=== PATIENT | male | born 1965 | race African-American/Black ===

== ENCOUNTER 2017-09-18 23:47 | Inpatient (IN) | payer OTHER ==
[~2017-09-18] VITALS: Ht 170.2 cm; Wt 67.1 kg
[~2017-09-18 23:47] MED LIST: ASPI-1159 PO; BACL20TA PO; CARV3.1242 PO; IBUP-2028 PO; LISI40TA4 PO; MULT-1146 PO; OMEG1CAP94 PO; VALP250C PO
[2017-09-19] MEDS ORDERED: SODIUM CHLORIDE 0.9% 1000ML BAG (SEPSIS BOLUS) IV ONE (00:15)
[2017-09-19 01:49] LABS: HEMOGLOBIN. 14.8 g/dL (14.0-18.0); MEAN CORPUSCULAR HEMOGLOBIN 32.8 pg (28.0-32.0); MEAN CORPUSCULAR VOLUME 95.3 fL (80.0-94.0); MEAN PLATELET VOLUME 7.9 fl (7.4-10.4); PLATELET 228 x1000/uL (130-400); RED BLOOD CELL COUNT 4.51 mill/uL (4.7-6.1); RED CELL DISTRIBUTION WIDTH 13.5 % (11.6-14.6)
[2017-09-19 01:55] LABS: PROTHROMBIN TIME 10.5 sec (9.4-11.6)
[2017-09-19 01:56] LABS: CHLORIDE 85 mEq/L (98-107)
[2017-09-19 02:00] LABS: ETHANOL BLOOD < 10 mg/dL
[2017-09-19] MEDS ORDERED: POTASSIUM BICARB/CIT ACID 25 MEQ TABLET.EFF PO SCH (02:55)
[2017-09-19 03:48] LABS: ATYPICAL LYMPHOCYTES 2; PLATELET ESTIMATE NORMAL
[2017-09-19 04:30] VITALS: BP 92/59
[2017-09-19] MEDS ORDERED: SODIUM CHLORIDE 0.9% 1,000 ML IV SCH (05:30)
[2017-09-19 06:41] VITALS: BP 92/59
[2017-09-19 08:00] VITALS: BP 97/61
[2017-09-19 10:52] LABS: HEMATOCRIT. 41.4 % (42.0-52.0); HEMOGLOBIN. 14.2 g/dL (14.0-18.0); MEAN CORPUSCULAR HEMOGLOBIN 32.7 pg (28.0-32.0); MEAN CORPUSCULAR VOLUME 95.3 fL (80.0-94.0); PLATELET 211 x1000/uL (130-400); RED BLOOD CELL COUNT 4.35 mill/uL (4.7-6.1); RED CELL DISTRIBUTION WIDTH 13.3 % (11.6-14.6)
[2017-09-19 11:16] LABS: CHLORIDE 85 mEq/L (98-107)
[2017-09-19 11:31] LABS: LDL CHOLESTEROL 53 mg/dL (5-100)
[2017-09-19 11:32] LABS: HDL CHOLESTEROL 47 mg/dL (40-59)
[2017-09-19 12:00] VITALS: BP_SYST 111; BP_SYST 112; BP_SYST 114; BP_DIAS 60; BP_DIAS 70
[2017-09-19] MEDS ORDERED: POTASSIUM CHLORIDE 20MEQ TABLET SR PO SCH (12:30)
[2017-09-19 14:36] LABS: PLATELET ESTIMATE NORMAL
[2017-09-19 15:46] LABS: PHOSPHORUS 3.5 mg/dL (2.5-4.9)
[2017-09-19 15:50] LABS: CLARITY URINE CLEAR (CLEAR); COLOR URINE YELLOW (YELLOW); KETONES URINE TRACE (NEGATIVE); LEUKOCYTE ESTERASE URINE NEGATIVE (NEGATIVE); NITRITE URINE NEGATIVE (NEGATIVE); OCCULT BLOOD URINE NEGATIVE (NEGATIVE); PROTEIN URINE TRACE (NEGATIVE); SPECIFIC GRAVITY URINE 1.017 (1.005-1.030); UROBILINOGEN URINE 0.2 E.U./dL (0.2-1.0)
[2017-09-19] MEDS: BACLOFEN 20MG TABLET PO SCH ×2 (15:58→22:51)
[2017-09-19] MEDS: POTASSIUM CHLORIDE INJ 40 MEQ in SODIUM CHLORIDE 0.9% 1,000 ML IV SCH (15:58)
[2017-09-19] MEDS: CHLORPROMAZINE HCL 25 MG TABLET PO SCH ×2 (15:58→22:51)
[2017-09-19 16:00] VITALS: BP 120/77
[2017-09-19 16:02] LABS: *AMPHETAMINES SCREEN URINE NEGATIVE (NEGATIVE); *BARBITURATES SCREEN URINE NEGATIVE (NEGATIVE)
[2017-09-19 16:03] LABS: *BENZODIAZEPINES SCREEN URINE NEGATIVE (NEGATIVE); *COCAINE SCREEN URINE NEGATIVE (NEGATIVE); CANNABINOID URINE SCREEN NEGATIVE (NEGATIVE); METHADONE URINE SCREEN NEGATIVE (NEGATIVE); OPIATES URINE SCREEN NEGATIVE (NEGATIVE); PHENCYCLIDINE URINE SCREEN NEGATIVE (NEGATIVE)
[2017-09-19 20:00] VITALS: BP_SYST 116; BP_SYST 117; BP_DIAS 73; BP_DIAS 78
[2017-09-19] MEDS ORDERED: KCL 20MEQ/100ML PREMIX 100 ML IV ONE (22:15)
[2017-09-19] MEDS ORDERED: POTASSIUM CHLORIDE INJ 40 MEQ in DEXT 5% WATER 250 ML IV NR (23:30)
[2017-09-20] VITALS: BP_SYST 100; BP_SYST 106; BP_DIAS 60
[2017-09-20] MEDS: POTASSIUM CHLORIDE INJ 40 MEQ in SODIUM CHLORIDE 0.9% 1,000 ML IV SCH (00:36)
[2017-09-20] MEDS ORDERED: KCL 20MEQ/100ML PREMIX 100 ML IV ONE (01:00)
[2017-09-20 04:00] VITALS: BP_SYST 108; BP_SYST 135; BP_DIAS 65; BP_DIAS 73
[2017-09-20] MEDS: CHLORPROMAZINE HCL 25 MG TABLET PO SCH ×3 (06:37→21:14)
[2017-09-20 08:00] VITALS: BP 125/79
[2017-09-20] MEDS: BACLOFEN 20MG TABLET PO SCH ×2 (08:26→16:07)
[2017-09-20 10:35] LABS: CHLORIDE 95 mEq/L (98-107)
[2017-09-20 10:43] LABS: HDL CHOLESTEROL 45 mg/dL (40-59)
[2017-09-20 10:46] LABS: CREATINE KINASE 203 IU/L (39-308)
[2017-09-20 10:49] LABS: CREATINE KINASE MB FRACTION < 0.5 ng/mL (0.5-3.6)
[2017-09-20 10:52] LABS: LDL CHOLESTEROL 56 mg/dL (5-100)
[2017-09-20] MEDS ORDERED: POTASSIUM CHLORIDE 20MEQ TABLET SR PO NR ×3 (11:45→18:00)
[2017-09-20 12:00] VITALS: BP_SYST 112; BP_SYST 137; BP_DIAS 70; BP_DIAS 84
[2017-09-20] MEDS: KCL 20MEQ/100ML PREMIX 100 ML IV NR ×3 (12:30→14:01)
[2017-09-20] MEDS ORDERED: KCL 20MEQ/100ML PREMIX 100 ML IV NR (14:30)
[2017-09-20] MEDS ORDERED: TH25 PO (15:41)
[2017-09-20] MEDS ORDERED: BACL20TA PO (15:41)
[2017-09-20 16:00] VITALS: BP 128/70
[2017-09-20 16:36] LABS: BASOPHILS % 0.3 % (0.0-2.0); EOSINOPHILS % 1.3 % (0.0-5.0); HEMATOCRIT. 42.6 % (42.0-52.0); HEMOGLOBIN. 14.2 g/dL (14.0-18.0); LYMPHOCYTES % 32.2 % (20.0-50.0); MEAN CORPUSCULAR HEMOGLOBIN 32.4 pg (28.0-32.0); MEAN CORPUSCULAR VOLUME 97.2 fL (80.0-94.0); MEAN PLATELET VOLUME 8.4 fl (7.4-10.4); MONOCYTES % 14.8 % (2.0-8.0); NEUTROPHILS % 51.4 % (40.0-76.0); PLATELET 191 x1000/uL (130-400); RED BLOOD CELL COUNT 4.39 mill/uL (4.7-6.1); RED CELL DISTRIBUTION WIDTH 13.6 % (11.6-14.6)
[2017-09-20 16:40] LABS: CHLORIDE 100 mEq/L (98-107)
[2017-09-20 20:00] VITALS: BP_SYST 114; BP_SYST 120; BP_SYST 133; BP_DIAS 65; BP_DIAS 81; BP_DIAS 84
[2017-09-21] VITALS: BP 119/66
[2017-09-21 04:00] VITALS: BP 137/83
[2017-09-21] MEDS: CHLORPROMAZINE HCL 25 MG TABLET PO SCH ×2 (05:06→15:21)
[2017-09-21 07:43] LABS: BASOPHILS % 0.2 % (0.0-2.0); EOSINOPHILS % 1.6 % (0.0-5.0); HEMATOCRIT. 40.6 % (42.0-52.0); HEMOGLOBIN. 13.5 g/dL (14.0-18.0); LYMPHOCYTES % 37.5 % (20.0-50.0); MEAN CORPUSCULAR HEMOGLOBIN 32.1 pg (28.0-32.0); MEAN CORPUSCULAR VOLUME 96.3 fL (80.0-94.0); MEAN PLATELET VOLUME 8.9 fl (7.4-10.4); MONOCYTES % 13.6 % (2.0-8.0); NEUTROPHILS % 47.1 % (40.0-76.0); PLATELET 186 x1000/uL (130-400); RED BLOOD CELL COUNT 4.22 mill/uL (4.7-6.1); RED CELL DISTRIBUTION WIDTH 13.2 % (11.6-14.6)
[2017-09-21 07:59] LABS: CHLORIDE 100 mEq/L (98-107)
[2017-09-21 08:00] VITALS: BP_SYST 126; BP_SYST 138; BP_SYST 147; BP_DIAS 86; BP_DIAS 88; BP_DIAS 91; BP_DIAS 93
[2017-09-21 08:08] LABS: PHOSPHORUS 2.3 mg/dL (2.5-4.9)
[2017-09-21] MEDS ORDERED: POTASSIUM CHLORIDE 20MEQ TABLET SR PO SCH (08:15)
[2017-09-21] MEDS: BACLOFEN 20MG TABLET PO SCH (08:55)
[2017-09-21] MEDS ORDERED: MAGNESIUM 2 G PREMIX 50 ML IV SCH (09:30)
[2017-09-21] MEDS ORDERED: ACETAMINOPHEN 650MG/20.3ML UDC PO PRN (10:00)
[2017-09-21] MEDS ORDERED: POTASSIUM-SODIUM PHOSPHATE POWDER PACKET PO SCH (10:00)
[2017-09-21] MEDS ORDERED: ACETAMINOPHEN 325MG TABLET PO PRN (10:30)
[2017-09-21 11:43] VITALS: BP 126/84
[2017-09-21 12:00] VITALS: BP 126/84
[2017-09-21] MEDS ORDERED: POTASSIUM CHLORIDE 20MEQ/PACKET PO ONE (12:00)
== END 2017-09-21 16:00 | disposition home or self-care (01) | DRG 469 ==
LOC: ER 23:47 → 5WST 09-19 02:21 → EDBEDREQTM 09-19 02:25 → EDBEDREQ 09-19 02:25 → ENRESERV 09-19 03:07
PROVIDERS: ADMIT Family Medicine; ATTEND Family Medicine
DX: N17.0 Acute kidney failure with tubular necrosis (principal); E87.4 Mixed disorder of acid-base balance; I95.9 Hypotension, unspecified; E27.8 Other specified disorders of adrenal gland; E83.42 Hypomagnesemia; E83.39 Other disorders of phosphorus metabolism; E11.9 Type 2 diabetes mellitus without complications; E87.6 Hypokalemia; I10 Essential (primary) hypertension; R06.6 Hiccough; K44.9 Diaphragmatic hernia without obstruction or gangrene; M19.90 Unspecified osteoarthritis, unspecified site; E86.0 Dehydration; F10.10 Alcohol abuse, uncomplicated; Y90.9 Presence of alcohol in blood, level not specified; F41.8 Other specified anxiety disorders; Y90.8 Blood alcohol level of 240 mg/100 ml or more; F17.200 Nicotine dependence, unspecified, uncomplicated; Z79.899 Other long term (current) drug therapy; Z82.49 Family history of ischemic heart disease and other diseases of the circulatory system; Z79.82 Long term (current) use of aspirin
CPT/HCPCS: 36415; 70450; 71045; 74176; 76770; 80048; 80053; 80061; 80305; 81003; 82088; 82550; 82553; 83036; 83605; 83690; 83735; 83880; 84100; 84132; 84244; 84439; 84443; 84484; 85025; 85379; 85610; 87040; 87086; 93005; 93306; 96360; 96361; 97162; 99285; G0482; J3475; J3480; J7030; J7050; J7060; Q0161

== ENCOUNTER 2018-07-04 10:21 | Emergency (ER) | payer OTHER ==
[~2018-07-04] VITALS: Ht 170.2 cm; Wt 80.0 kg
[~2018-07-04 10:21] MED LIST changes: -CARV3.1242 PO; -IBUP-2028 PO; +TH25 PO
[2018-07-04] MEDS ORDERED: AMLO2.5T45 PO (10:27)
[2018-07-04 11:46] LABS: EOSINOPHILS % 0.6 % (0.0-5.0); HEMOGLOBIN. 17.7 g/dL (14.0-18.0); MEAN CORPUSCULAR HEMOGLOBIN 33.8 pg (28.0-32.0); MEAN CORPUSCULAR VOLUME 99.4 fL (80.0-94.0); MEAN PLATELET VOLUME 7.9 fl (7.4-10.4); MONOCYTES % 10.2 % (2.0-8.0); NEUTROPHILS % 59.2 % (40.0-76.0); PLATELET 210 x1000/uL (130-400); RED BLOOD CELL COUNT 5.23 mill/uL (4.7-6.1)
[2018-07-04 11:53] LABS: CHLORIDE 102 mEq/L (98-107)
[2018-07-04 11:54] LABS: CLARITY URINE CLEAR (CLEAR); COLOR URINE YELLOW (YELLOW); KETONES URINE NEGATIVE (NEGATIVE); LEUKOCYTE ESTERASE URINE NEGATIVE (NEGATIVE); NITRITE URINE NEGATIVE (NEGATIVE); OCCULT BLOOD URINE NEGATIVE (NEGATIVE); PROTEIN URINE NEGATIVE (NEGATIVE); SPECIFIC GRAVITY URINE 1.006 (1.005-1.030)
[2018-07-04] MEDS: POTASSIUM CHLORIDE 20MEQ TABLET SR PO ONE (14:27)
[2018-07-04 17:30] VITALS: BP 144/81
== END 2018-07-04 17:55 | disposition short-term general hospital (02) ==
LOC: ER 10:25
DX: E11.65 Type 2 diabetes mellitus with hyperglycemia (principal); E87.6 Hypokalemia; R78.89 Finding of other specified substances, not normally found in blood; F32.9 Major depressive disorder, single episode, unspecified; I10 Essential (primary) hypertension; Z79.82 Long term (current) use of aspirin; Z79.899 Other long term (current) drug therapy
CPT/HCPCS: 36415; 83605; 84132; 84145; 99285

== ENCOUNTER 2018-08-08 20:54 | Inpatient (IN) | payer OTHER ==
[~2018-08-08] VITALS: Ht 167.6 cm; Wt 67.4 kg
[~2018-08-08 20:54] MED LIST changes: +AMLO2.5T45 PO; -ASPI-1159 PO; +ASPI-1393 PO
[2018-08-08] MEDS ORDERED: SODIUM CHLORIDE 0.9% 1,000 ML IV ONE ×2 (21:21→23:45)
[2018-08-08] MEDS ORDERED: NALOXONE HCL 1 MG/ML 2ML VIAL IV ONE ×2 (21:30→22:30)
[2018-08-08 21:52] LABS: CLARITY URINE TURBID (CLEAR); COLOR URINE YELLOW (YELLOW); KETONES URINE TRACE (NEGATIVE); LEUKOCYTE ESTERASE URINE NEGATIVE (NEGATIVE); NITRITE URINE NEGATIVE (NEGATIVE); OCCULT BLOOD URINE 1+ (NEGATIVE); PROTEIN URINE 4+ (NEGATIVE); SPECIFIC GRAVITY URINE 1.026 (1.005-1.030)
[2018-08-08 21:57] LABS: *AMPHETAMINES SCREEN URINE NEGATIVE (NEGATIVE); *BARBITURATES SCREEN URINE NEGATIVE (NEGATIVE); *BENZODIAZEPINES SCREEN URINE PRESUMTIVE POSITIVE (NEGATIVE); *COCAINE SCREEN URINE NEGATIVE (NEGATIVE); METHADONE URINE SCREEN NEGATIVE (NEGATIVE); OPIATES URINE SCREEN NEGATIVE (NEGATIVE)
[2018-08-08 21:58] LABS: CANNABINOID URINE SCREEN NEGATIVE (NEGATIVE); PHENCYCLIDINE URINE SCREEN NEGATIVE (NEGATIVE)
[2018-08-08 22:17] LABS: BASOPHILS % 0.4 % (0.0-2.0); EOSINOPHILS % 0.2 % (0.0-5.0); HEMATOCRIT. 49.4 % (42.0-52.0); HEMOGLOBIN. 16.2 g/dL (14.0-18.0); LYMPHOCYTES % 24.7 % (20.0-50.0); MEAN CORPUSCULAR HEMOGLOBIN 33.6 pg (28.0-32.0); MEAN CORPUSCULAR VOLUME 102.6 fL (80.0-94.0); MEAN PLATELET VOLUME 8.4 fl (7.4-10.4); MONOCYTES % 9.6 % (2.0-8.0); NEUTROPHILS % 65.1 % (40.0-76.0); PLATELET 180 x1000/uL (130-400); RED BLOOD CELL COUNT 4.82 mill/uL (4.7-6.1); RED CELL DISTRIBUTION WIDTH 14.5 % (11.6-14.6)
[2018-08-08 22:24] LABS: CHLORIDE 109 mEq/L (98-107)
[2018-08-08 22:26] LABS: INR 1.1; PROTHROMBIN TIME 11.7 sec (9.6-11.0)
[2018-08-08 22:28] LABS: ETHANOL BLOOD 187 mg/dL
[2018-08-09] VITALS (77 sets, daily range): BP systolic 75–138; BP diastolic 38–80
[2018-08-09] MEDS ORDERED: ONDANSETRON HCL 4MG/2ML INJ IV ONE (00:15)
[2018-08-09] MEDS ORDERED: PIPERACILLIN/TAZ 3.375G PREMIX 50 ML IV ONE (00:45)
[2018-08-09] MEDS ORDERED: VANCOMYCIN 1 G PREMIX 200 ML IV ONE (00:45)
[2018-08-09 01:12] LABS: BG BASE EXCESS -23.8 mmol/L (-2.0-2.0); BG CARBOXYHEMOGLOBIN 2.2 % (0.5-1.5); BG DEOXYHEMOGLOBIN 10.4 % (0.0-5.0); BG FRACTION INSPIRED OXYGEN 28; BG HCO3 ACT 8.1 mmol/L (22.0-26.0); BG METHEMOGLOBIN 0.5 % (0.0-1.5); BG OXYGEN SATURATION 89.3 % (92.0-98.5); BG OXYHEMOGLOBIN 86.9 % (94.0-97.0); BG PCO2 38.4 mmHg (35.0-45.0); BG PH 6.943 (7.350-7.450); BG PO2 84.6 mmHg (75.0-100.0); BG SAMPLE SITE RIGHT RADIAL; BG TOTAL HEMOGLOBIN 16.5 g/dL (12.0-18.0); BG VENT MODE NASAL CANNULA
[2018-08-09] MEDS ORDERED: SODIUM CHLORIDE 0.9% 500 ML IV ONE (01:30)
[2018-08-09] MEDS ORDERED: MIDAZOLAM HCL 2 MG/2 ML VIAL IV ONE (01:45)
[2018-08-09] MEDS ORDERED: ETOMIDATE 2MG/ML 10ML VIAL IV ONE (01:45)
[2018-08-09] MEDS ORDERED: MIDAZOLAM HCL 50 MG in DEXTROSE 5% WATER 40 ML IV ONE ×2 (01:45→03:30)
[2018-08-09] MEDS ORDERED: SUCCINYLCHOLINE CHLORIDE 200MG/10ML IV ONE (01:45)
[2018-08-09] MEDS ORDERED: MIDAZOLAM HCL 50 MG in DEXTROSE 5% WATER 40 ML IV SCH (02:15)
[2018-08-09] MEDS ORDERED: DEXTROSE 50% WATER 50ML SYRINGE IV ONE (03:30)
[2018-08-09] MEDS ORDERED: FENTANYL CITRATE/PF 500 MCG in SODIUM CHLORIDE 0.9% 40 ML IV PRN ×2 (03:30→04:00)
[2018-08-09] MEDS ORDERED: DEXT 5%/0.45% NACL 1000ML 1,000 ML IV SCH (05:30)
[2018-08-09 06:08] LABS: BG BASE EXCESS -29.6 mmol/L (-2.0-2.0); BG CARBOXYHEMOGLOBIN 0.6 % (0.5-1.5); BG DEOXYHEMOGLOBIN 0.5 % (0.0-5.0); BG FRACTION INSPIRED OXYGEN 80; BG HCO3 ACT 4.1 mmol/L (22.0-26.0); BG METHEMOGLOBIN 0.8 % (0.0-1.5); BG OXYGEN SATURATION 99.5 % (92.0-98.5); BG OXYHEMOGLOBIN 98.1 % (94.0-97.0); BG PCO2 24.9 mmHg (35.0-45.0); BG PO2 383.2 mmHg (75.0-100.0); BG SAMPLE SITE RIGHT BRACHIAL; BG TIDAL VOLUME(mL) 600 mL; BG TOTAL HEMOGLOBIN 15.7 g/dL (12.0-18.0); BG VENT MODE VENT - A/C; BG VENT RATE 14 set
[2018-08-09] MEDS ORDERED: SODIUM BICARBONATE 8.4% 1 MEQ/ML 50ML SYR IV NR ×4 (06:30→19:45)
[2018-08-09] MEDS: MIDAZOLAM HCL 50 MG in DEXTROSE 5% WATER 40 ML IV PRN ×2 (07:28→08:07)
[2018-08-09] MEDS: FENTANYL CITRATE/PF 500 MCG in SODIUM CHLORIDE 0.9% 40 ML IV PRN (07:29)
[2018-08-09] MEDS: NOREPINEPHRINE 16 MG in DEXT 5% WATER 234 ML IV PRN ×2 (07:30→18:44)
[2018-08-09] MEDS: BLOOD SUGAR DIAGNOSTIC STRIP TEST SCH ×3 (07:40→18:00)
[2018-08-09] MEDS: PIPERACILLIN/TAZ 2.25G PREMIX 50 ML IV SCH ×2 (08:51→18:13)
[2018-08-09] MEDS: FAMOTIDINE 20MG/2ML VIAL IV SCH (08:52)
[2018-08-09] MEDS ORDERED: ENOXAPARIN 40MG/0.4ML SYR SUBCUT SCH (09:00)
[2018-08-09] MEDS: IPRATROPIUM/ALBUTEROL 0.5-3(2.5)MG/3ML NEB HHN SCH ×4 (09:07→19:37)
[2018-08-09 09:09] LABS: BG BASE EXCESS -27.2 mmol/L (-2.0-2.0); BG CARBOXYHEMOGLOBIN 0.4 % (0.5-1.5); BG DEOXYHEMOGLOBIN 0.6 % (0.0-5.0); BG FRACTION INSPIRED OXYGEN 80; BG HCO3 ACT 5.7 mmol/L (22.0-26.0); BG METHEMOGLOBIN 0.8 % (0.0-1.5); BG OXYGEN SATURATION 99.4 % (92.0-98.5); BG OXYHEMOGLOBIN 98.2 % (94.0-97.0); BG PCO2 31.2 mmHg (35.0-45.0); BG PH 6.876 (7.350-7.450); BG PO2 307.4 mmHg (75.0-100.0); BG SAMPLE SITE RIGHT RADIAL; BG TIDAL VOLUME(mL) 600 mL; BG TOTAL HEMOGLOBIN 15.2 g/dL (12.0-18.0); BG VENT MODE VENT - A/C; BG VENT RATE 14 set
[2018-08-09 10:39] LABS: HEMATOCRIT. 44.6 % (42.0-52.0); HEMOGLOBIN. 13.7 g/dL (14.0-18.0); MEAN CORPUSCULAR HEMOGLOBIN 32.9 pg (28.0-32.0); PLATELET 172 x1000/uL (130-400); RED BLOOD CELL COUNT 4.17 mill/uL (4.7-6.1); RED CELL DISTRIBUTION WIDTH 15.3 % (11.6-14.6)
[2018-08-09 11:22] LABS: PLATELET ESTIMATE NORMAL
[2018-08-09] MEDS: SODIUM BICARBONATE 150 MEQ in DEXTROSE 5% WATER 1,000 ML IV SCH ×2 (11:28→14:38)
[2018-08-09] MEDS ORDERED: DEXTROSE 50% WATER 50ML SYRINGE IV NR (11:45)
[2018-08-09] MEDS ORDERED: INSULIN REGULAR (HUMULIN R) 300UNITS/3ML IV NR (11:45)
[2018-08-09 11:53] LABS: BG BASE EXCESS -24.8 mmol/L (-2.0-2.0); BG CARBOXYHEMOGLOBIN 0.1 % (0.5-1.5); BG DEOXYHEMOGLOBIN 3.1 % (0.0-5.0); BG FRACTION INSPIRED OXYGEN 40; BG HCO3 ACT 5.4 mmol/L (22.0-26.0); BG METHEMOGLOBIN 0.5 % (0.0-1.5); BG OXYGEN SATURATION 96.9 % (92.0-98.5); BG OXYHEMOGLOBIN 96.3 % (94.0-97.0); BG PCO2 22.9 mmHg (35.0-45.0); BG PH 6.989 (7.350-7.450); BG PO2 116.4 mmHg (75.0-100.0); BG SAMPLE SITE LEFT RADIAL; BG TIDAL VOLUME(mL) 600 mL; BG TOTAL HEMOGLOBIN 15.2 g/dL (12.0-18.0); BG VENT MODE VENT - A/C; BG VENT RATE 30 set
[2018-08-09] MEDS: SULFAMETHOXAZOLE/TRIMETHOPRIM 400/80MG TAB PO SCH (12:27)
[2018-08-09] MEDS: MULTIVITAMINS,THER W-MINERALS TABLET PO SCH (12:28)
[2018-08-09] MEDS: FOLIC ACID 1MG TABLET PO SCH (12:28)
[2018-08-09] MEDS: THIAMINE HCL 100MG TABLET PO SCH (12:28)
[2018-08-09] MEDS ORDERED: AZITHROMYCIN 600 MG TABLET PO SCH (13:00)
[2018-08-09] MEDS ORDERED: VANCOMYCIN 1500MG in DEXTROSE 5% WATER 250ML IV SCH (13:00)
[2018-08-09] MEDS ORDERED: FUROSEMIDE 100MG/10ML VIAL IVP NR (13:00)
[2018-08-09] MEDS ORDERED: SODIUM POLYSTYRENE SULFONATE 15 G/60 ML BOT PO NR (13:00)
[2018-08-09] MEDS: LEVETIRACETAM 500 MG in SODIUM CHLORIDE 0.9% 100 ML IV SCH ×2 (13:42→21:52)
[2018-08-09] MEDS: CITRIC ACID/SODIUM CITRATE SOLN 30ML UDC PO SCH ×2 (13:42→18:12)
[2018-08-09] MEDS: PHENYLEPHRINE 40 MG in DEXT 5% WATER 246 ML IV PRN ×2 (14:44→23:08)
[2018-08-09] MEDS: PROPOFOL 10MG/ML 100ML 100 ML IV PRN (18:30)
[2018-08-09 19:12] LABS: BG BASE EXCESS -18.8 mmol/L (-2.0-2.0); BG CARBOXYHEMOGLOBIN 0.3 % (0.5-1.5); BG DEOXYHEMOGLOBIN 2.6 % (0.0-5.0); BG FRACTION INSPIRED OXYGEN 40; BG HCO3 ACT 8.5 mmol/L (22.0-26.0); BG METHEMOGLOBIN 0.5 % (0.0-1.5); BG OXYGEN SATURATION 97.4 % (92.0-98.5); BG OXYHEMOGLOBIN 96.6 % (94.0-97.0); BG PCO2 25.5 mmHg (35.0-45.0); BG PH 7.142 (7.350-7.450); BG PO2 118.9 mmHg (75.0-100.0); BG SAMPLE SITE RIGHT RADIAL; BG TIDAL VOLUME(mL) 600 mL; BG TOTAL HEMOGLOBIN 14.7 g/dL (12.0-18.0); BG VENT MODE VENT - A/C; BG VENT RATE 30 set
[2018-08-09] MEDS ORDERED: VANCOMYCIN 1250MG in DEXTROSE 5% WATER 250ML IV SCH (21:00)
[2018-08-10] VITALS (94 sets, daily range): BP systolic 95–155; BP diastolic 49–90
[2018-08-10] MEDS: IPRATROPIUM/ALBUTEROL 0.5-3(2.5)MG/3ML NEB HHN SCH ×6 (00:20→19:53)
[2018-08-10] MEDS: PROPOFOL 10MG/ML 100ML 100 ML IV PRN ×3 (04:19→22:32)
[2018-08-10] MEDS: SODIUM BICARBONATE 150 MEQ in DEXTROSE 5% WATER 1,000 ML IV SCH ×3 (04:20→21:47)
[2018-08-10] MEDS: NOREPINEPHRINE 16 MG in DEXT 5% WATER 234 ML IV PRN (04:21)
[2018-08-10 05:02] LABS: BASOPHILS % 0.4 % (0.0-2.0); HEMATOCRIT. 43.4 % (42.0-52.0); HEMOGLOBIN. 14.1 g/dL (14.0-18.0); LYMPHOCYTES % 14.1 % (20.0-50.0); MEAN CORPUSCULAR HEMOGLOBIN 33.8 pg (28.0-32.0); MEAN CORPUSCULAR VOLUME 103.8 fL (80.0-94.0); MEAN PLATELET VOLUME 9.4 fl (7.4-10.4); MONOCYTES % 12.4 % (2.0-8.0); NEUTROPHILS % 73.1 % (40.0-76.0); PLATELET 152 x1000/uL (130-400); RED BLOOD CELL COUNT 4.18 mill/uL (4.7-6.1); RED CELL DISTRIBUTION WIDTH 15.2 % (11.6-14.6)
[2018-08-10 05:12] LABS: CHLORIDE 90 mEq/L (98-107)
[2018-08-10 05:18] LABS: PHOSPHORUS 6.6 mg/dL (2.5-4.9)
[2018-08-10 05:36] LABS: CREATINE KINASE 3135 IU/L (39-308)
[2018-08-10] MEDS: BLOOD SUGAR DIAGNOSTIC STRIP TEST SCH ×6 (06:27→17:55)
[2018-08-10] MEDS: PHENYLEPHRINE 40 MG in DEXT 5% WATER 246 ML IV PRN ×2 (06:37→16:25)
[2018-08-10] MEDS ORDERED: SODIUM CHLORIDE 0.9% 1000ML BAG (SEPSIS BOLUS) IV NR (08:00)
[2018-08-10] MEDS ORDERED: CALCITRIOL 1MCG/ML AMP IV SCH (09:00)
[2018-08-10 09:06] LABS: ABSOLUTE LYMPHOCYTES 1.3 x10E3/uL (0.7-3.1); ABSOLUTE MONOCYTES 2.7 x10E3/uL (0.1-0.9); ABSOLUTE NEUTROPHILS 21.5 x10E3/uL (1.4-7.0); BASOPHILS 0 % (Not Estab.); HEMATOCRIT 42.9 % (37.5-51.0); HEMOGLOBIN 13.5 g/dL (13.0-17.7); IMMATURE GRANULOCYTES 0 % (Not Estab.); LYMPHOCYTES 5 % (Not Estab.); MEAN CORPUSCULAR HEMOGLOBIN 32.1 pg (26.6-33.0); MEAN CORPUSCULAR HGB CONC. 31.5 g/dL (31.5-35.7); MEAN CORPUSCULAR VOLUME 102 fL (79-97); MONOCYTES 11 % (Not Estab.); NEUTROPHILS 84 % (Not Estab.); PLATELETS 195 x10E3/uL (150-450); RBC 4.21 x10E6/uL (4.14-5.80); RED CELL DISTRIBUTION WIDTH 14.9 % (12.3-15.4); WBC 25.6 x10E3/uL (3.4-10.8)
[2018-08-10] MEDS: ENOXAPARIN 30MG/0.3ML SYR SUBCUT SCH (09:39)
[2018-08-10] MEDS: LEVETIRACETAM 500 MG in SODIUM CHLORIDE 0.9% 100 ML IV SCH ×2 (09:40→20:46)
[2018-08-10] MEDS: FAMOTIDINE 20MG/2ML VIAL IV SCH (09:40)
[2018-08-10] MEDS: PIPERACILLIN/TAZ 2.25G PREMIX 50 ML IV SCH ×3 (09:40→16:23)
[2018-08-10] MEDS: FOLIC ACID 1MG TABLET PO SCH (09:41)
[2018-08-10] MEDS: THIAMINE HCL 100MG TABLET PO SCH (09:41)
[2018-08-10] MEDS: SULFAMETHOXAZOLE/TRIMETHOPRIM 400/80MG TAB PO SCH (09:41)
[2018-08-10] MEDS: MULTIVITAMINS,THER W-MINERALS TABLET PO SCH (09:41)
[2018-08-10] MEDS ORDERED: MAGNESIUM 2 G PREMIX 50 ML IV SCH (10:00)
[2018-08-10 10:14] LABS: BG BASE EXCESS -6.8 mmol/L (-2.0-2.0); BG CARBOXYHEMOGLOBIN 0.5 % (0.5-1.5); BG DEOXYHEMOGLOBIN 3.1 % (0.0-5.0); BG FRACTION INSPIRED OXYGEN 40; BG METHEMOGLOBIN 0.4 % (0.0-1.5); BG OXYGEN SATURATION 96.9 % (92.0-98.5); BG PCO2 25.7 mmHg (35.0-45.0); BG PH 7.411 (7.350-7.450); BG PO2 93.7 mmHg (75.0-100.0); BG SAMPLE SITE RIGHT RADIAL; BG TIDAL VOLUME(mL) 600 mL; BG TOTAL HEMOGLOBIN 14.2 g/dL (12.0-18.0); BG VENT MODE VENT - A/C; BG VENT RATE 30 set
[2018-08-10] MEDS: CITRIC ACID/SODIUM CITRATE SOLN 15ML UDC PO SCH ×3 (11:11→17:54)
[2018-08-10] MEDS ORDERED: DEXTROSE 50% WATER 50ML SYRINGE IV PRN (12:15)
[2018-08-10] MEDS: INSULIN LISPRO 100 UNITS/ML SUBCUT SCH ×2 (12:30→17:54)
[2018-08-10 14:17] LABS: % CD 4 POS. LYMPHOCYTES 51.6 % (30.8-58.5); % CD 8 POS. LYMPH 29.8 % (12.0-35.5); ABSOLUTE CD 3 1040 /uL (622-2402); ABSOLUTE CD 4 HELPER 671 /uL (359-1519); ABSOLUTE CD 8 SUPPRESSOR 387 /uL (109-897); CD4/CD8 RATIO 1.73 (0.92-3.72)
[2018-08-10] MEDS ORDERED: ATOVAQUONE 750MG/5ML PACKET PO SCH (18:20)
[2018-08-11] VITALS (94 sets, daily range): BP systolic 94–154; BP diastolic 48–88
[2018-08-11] MEDS: BLOOD SUGAR DIAGNOSTIC STRIP TEST SCH ×4 (00:31→17:49)
[2018-08-11] MEDS: IPRATROPIUM/ALBUTEROL 0.5-3(2.5)MG/3ML NEB HHN SCH ×7 (00:33→23:46)
[2018-08-11] MEDS: PIPERACILLIN/TAZ 2.25G PREMIX 50 ML IV SCH ×3 (00:35→17:56)
[2018-08-11] MEDS: INSULIN LISPRO 100 UNITS/ML SUBCUT SCH ×4 (00:36→17:42)
[2018-08-11] MEDS: PHENYLEPHRINE 40 MG in DEXT 5% WATER 246 ML IV PRN ×2 (04:05→17:56)
[2018-08-11] MEDS: FENTANYL CITRATE/PF 500 MCG in SODIUM CHLORIDE 0.9% 40 ML IV PRN ×4 (04:28→22:37)
[2018-08-11] MEDS: PROPOFOL 10MG/ML 100ML 100 ML IV PRN ×2 (04:29→08:27)
[2018-08-11 06:08] LABS: BASOPHILS % 0.2 % (0.0-2.0); HEMATOCRIT. 38.7 % (42.0-52.0); HEMOGLOBIN. 13.1 g/dL (14.0-18.0); MEAN CORPUSCULAR HEMOGLOBIN 33.5 pg (28.0-32.0); MEAN CORPUSCULAR VOLUME 99.2 fL (80.0-94.0); MEAN PLATELET VOLUME 9.4 fl (7.4-10.4); MONOCYTES % 11.4 % (2.0-8.0); NEUTROPHILS % 68.4 % (40.0-76.0); PLATELET 115 x1000/uL (130-400); RED CELL DISTRIBUTION WIDTH 14.4 % (11.6-14.6)
[2018-08-11 06:34] LABS: CHLORIDE 86 mEq/L (98-107)
[2018-08-11 07:00] LABS: PHOSPHORUS 0.6 mg/dL (2.5-4.9)
[2018-08-11] MEDS ORDERED: POTASSIUM CHLORIDE 20MEQ/PACKET NG NR (07:15)
[2018-08-11] MEDS: FAMOTIDINE 20MG/2ML VIAL IV SCH (08:25)
[2018-08-11] MEDS: FOLIC ACID 1MG TABLET PO SCH (08:25)
[2018-08-11] MEDS: MULTIVITAMINS,THER W-MINERALS TABLET PO SCH (08:25)
[2018-08-11] MEDS: LEVETIRACETAM 500 MG in SODIUM CHLORIDE 0.9% 100 ML IV SCH ×2 (08:26→21:28)
[2018-08-11] MEDS: ENOXAPARIN 30MG/0.3ML SYR SUBCUT SCH (08:26)
[2018-08-11] MEDS: THIAMINE HCL 100MG TABLET PO SCH (08:30)
[2018-08-11] MEDS ORDERED: POTASSIUM CHLORIDE INJ 40 MEQ in DEXT 5% WATER 250 ML IV SCH (09:00)
[2018-08-11] MEDS ORDERED: POTASSIUM PHOS,M-BASIC-D-BASIC 30 MMOL in DEXT 5% WATER 500 ML IV SCH (09:00)
[2018-08-11] MEDS ORDERED: POTASSIUM PHOS,M-BASIC-D-BASIC 20 MMOL in DEXT 5% WATER 243.3333 ML IV SCH (09:00)
[2018-08-11 09:20] LABS: BG BASE EXCESS 13.4 mmol/L (-2.0-2.0); BG CARBOXYHEMOGLOBIN 0.5 % (0.5-1.5); BG DEOXYHEMOGLOBIN 4.5 % (0.0-5.0); BG FRACTION INSPIRED OXYGEN 40; BG HCO3 ACT 32.9 mmol/L (22.0-26.0); BG METHEMOGLOBIN 0.2 % (0.0-1.5); BG OXYGEN SATURATION 95.5 % (92.0-98.5); BG OXYHEMOGLOBIN 94.8 % (94.0-97.0); BG PCO2 26.6 mmHg (35.0-45.0); BG PO2 64.1 mmHg (75.0-100.0); BG SAMPLE SITE RIGHT BRACHIAL; BG TIDAL VOLUME(mL) 600 mL; BG TOTAL HEMOGLOBIN 13.6 g/dL (12.0-18.0); BG VENT MODE VENT - A/C; BG VENT RATE 26 set
[2018-08-11] MEDS: SODIUM CHLORIDE 0.45% 1,000 ML IV SCH (09:38)
[2018-08-11] MEDS: MIDAZOLAM HCL 50 MG in DEXTROSE 5% WATER 40 ML IV PRN ×2 (10:37→14:10)
[2018-08-11] MEDS: INSULIN GLARGINE UD 100 UNITS/ML SYR SUBCUT SCH ×2 (10:57→21:29)
[2018-08-11 13:14] LABS: BG BASE EXCESS 14.7 mmol/L (-2.0-2.0); BG CARBOXYHEMOGLOBIN 0.7 % (0.5-1.5); BG DEOXYHEMOGLOBIN 3.7 % (0.0-5.0); BG FRACTION INSPIRED OXYGEN 40; BG HCO3 ACT 36.2 mmol/L (22.0-26.0); BG METHEMOGLOBIN 0.3 % (0.0-1.5); BG OXYGEN SATURATION 96.3 % (92.0-98.5); BG OXYHEMOGLOBIN 95.3 % (94.0-97.0); BG PCO2 33.7 mmHg (35.0-45.0); BG PH 7.649 (7.350-7.450); BG SAMPLE SITE RIGHT RADIAL; BG TIDAL VOLUME(mL) 600 mL; BG TOTAL HEMOGLOBIN 13.2 g/dL (12.0-18.0); BG VENT MODE VENT - A/C; BG VENT RATE 18 set
[2018-08-11] MEDS ORDERED: POTASSIUM PHOS,M-BASIC-D-BASIC 30 MMOL in SODIUM CHLORIDE 0.9% 500 ML IV SCH (16:00)
[2018-08-12] VITALS (45 sets, daily range): BP systolic 113–188; BP diastolic 67–129
[2018-08-12] MEDS: BLOOD SUGAR DIAGNOSTIC STRIP TEST SCH ×5 (00:49→23:39)
[2018-08-12] MEDS: PIPERACILLIN/TAZ 2.25G PREMIX 50 ML IV SCH ×4 (00:53→23:52)
[2018-08-12] MEDS: INSULIN LISPRO 100 UNITS/ML SUBCUT SCH ×5 (00:53→23:53)
[2018-08-12] MEDS: IPRATROPIUM/ALBUTEROL 0.5-3(2.5)MG/3ML NEB HHN SCH ×5 (03:50→20:09)
[2018-08-12] MEDS: SODIUM CHLORIDE 0.45% 1,000 ML IV SCH (04:47)
[2018-08-12 05:56] LABS: BASOPHILS % 0.2 % (0.0-2.0); EOSINOPHILS % 0.5 % (0.0-5.0); HEMATOCRIT. 38.9 % (42.0-52.0); LYMPHOCYTES % 11.2 % (20.0-50.0); MEAN CORPUSCULAR HEMOGLOBIN 33.2 pg (28.0-32.0); MEAN CORPUSCULAR VOLUME 99.4 fL (80.0-94.0); MEAN PLATELET VOLUME 8.9 fl (7.4-10.4); MONOCYTES % 13.4 % (2.0-8.0); NEUTROPHILS % 74.7 % (40.0-76.0); PLATELET 94 x1000/uL (130-400); RED BLOOD CELL COUNT 3.91 mill/uL (4.7-6.1); RED CELL DISTRIBUTION WIDTH 14.2 % (11.6-14.6)
[2018-08-12 06:03] LABS: CHLORIDE 104 mEq/L (98-107)
[2018-08-12 06:13] LABS: CREATINE KINASE 773 IU/L (39-308)
[2018-08-12 06:21] LABS: PHOSPHORUS 4.3 mg/dL (2.5-4.9)
[2018-08-12 08:00] LABS: BG BASE EXCESS 7.1 mmol/L (-2.0-2.0); BG CARBOXYHEMOGLOBIN 0.3 % (0.5-1.5); BG DEOXYHEMOGLOBIN 4.2 % (0.0-5.0); BG HCO3 ACT 32.7 mmol/L (22.0-26.0); BG METHEMOGLOBIN 1.2 % (0.0-1.5); BG OXYGEN SATURATION 95.7 % (92.0-98.5); BG OXYHEMOGLOBIN 94.3 % (94.0-97.0); BG PCO2 50.1 mmHg (35.0-45.0); BG PH 7.433 (7.350-7.450); BG PO2 86.7 mmHg (75.0-100.0); BG SAMPLE SITE RIGHT RADIAL; BG TIDAL VOLUME(mL) 600 mL; BG TOTAL HEMOGLOBIN 13.8 g/dL (12.0-18.0); BG VENT MODE VENT - A/C; BG VENT RATE 12 set
[2018-08-12] MEDS ORDERED: LIDOCAINE HCL 1% 20ML VIAL (Pyxis) INJ ONE (08:12)
[2018-08-12] MEDS: FENTANYL CITRATE/PF 500 MCG in SODIUM CHLORIDE 0.9% 40 ML IV PRN ×3 (08:21→21:40)
[2018-08-12] MEDS: MIDAZOLAM HCL 50 MG in DEXTROSE 5% WATER 40 ML IV PRN (08:22)
[2018-08-12] MEDS: LEVETIRACETAM 500 MG in SODIUM CHLORIDE 0.9% 100 ML IV SCH ×2 (08:55→21:58)
[2018-08-12] MEDS: THIAMINE HCL 100MG TABLET PO SCH (08:55)
[2018-08-12] MEDS: MULTIVITAMINS,THER W-MINERALS TABLET PO SCH (08:55)
[2018-08-12] MEDS: FOLIC ACID 1MG TABLET PO SCH (08:55)
[2018-08-12] MEDS: FAMOTIDINE 20MG/2ML VIAL IV SCH (08:55)
[2018-08-12] MEDS ORDERED: ALBUMIN HUMAN 25GM/100ML (25%) IV SCH (09:00)
[2018-08-12] MEDS ORDERED: POTASSIUM CHLORIDE INJ 40 MEQ in DEXT 5% WATER 250 ML IV SCH (10:00)
[2018-08-12] MEDS: INSULIN GLARGINE UD 100 UNITS/ML SYR SUBCUT SCH ×2 (10:26→21:57)
[2018-08-12] MEDS: DEXT 5%/0.2% NACL 1,000 ML IV SCH (10:36)
[2018-08-12] MEDS ORDERED: METOPROLOL TARTRATE 25MG TABLET PO SCH (15:30)
[2018-08-12] MEDS ORDERED: AMLODIPINE 5MG TABLET PO SCH (16:00)
[2018-08-13] VITALS (38 sets, daily range): BP systolic 142–197; BP diastolic 93–123
[2018-08-13] MEDS: IPRATROPIUM/ALBUTEROL 0.5-3(2.5)MG/3ML NEB HHN SCH ×6 (00:16→21:14)
[2018-08-13] MEDS: FENTANYL CITRATE/PF 500 MCG in SODIUM CHLORIDE 0.9% 40 ML IV PRN ×2 (05:53→09:21)
[2018-08-13] MEDS: MIDAZOLAM HCL 50 MG in DEXTROSE 5% WATER 40 ML IV PRN (05:53)
[2018-08-13] MEDS: DEXT 5%/0.2% NACL 1,000 ML IV SCH (05:54)
[2018-08-13 06:00] LABS: PHOSPHORUS 3.7 mg/dL (2.5-4.9)
[2018-08-13] MEDS: INSULIN LISPRO 100 UNITS/ML SUBCUT SCH ×3 (06:00→18:32)
[2018-08-13] MEDS: BLOOD SUGAR DIAGNOSTIC STRIP TEST SCH ×3 (06:00→18:28)
[2018-08-13 06:19] LABS: HEMATOCRIT. 36.4 % (42.0-52.0); HEMOGLOBIN. 12.4 g/dL (14.0-18.0); MEAN CORPUSCULAR HEMOGLOBIN 33.3 pg (28.0-32.0); MEAN CORPUSCULAR VOLUME 98.2 fL (80.0-94.0); MEAN PLATELET VOLUME 8.7 fl (7.4-10.4); PLATELET 88 x1000/uL (130-400); RED BLOOD CELL COUNT 3.71 mill/uL (4.7-6.1); RED CELL DISTRIBUTION WIDTH 14.1 % (11.6-14.6)
[2018-08-13 08:20] LABS: HIV SCREEN 4G Non Reactive (Non Reactive)
[2018-08-13 08:30] LABS: PLATELET ESTIMATE DECREASED
[2018-08-13] MEDS: MULTIVITAMINS,THER W-MINERALS TABLET PO SCH (08:35)
[2018-08-13] MEDS: LEVETIRACETAM 500 MG in SODIUM CHLORIDE 0.9% 100 ML IV SCH ×2 (08:35→21:11)
[2018-08-13] MEDS: FAMOTIDINE 20MG/2ML VIAL IV SCH (08:35)
[2018-08-13] MEDS: PIPERACILLIN/TAZ 2.25G PREMIX 50 ML IV SCH ×2 (08:35→15:20)
[2018-08-13] MEDS: FOLIC ACID 1MG TABLET PO SCH (08:36)
[2018-08-13] MEDS: THIAMINE HCL 100MG TABLET PO SCH (08:36)
[2018-08-13] MEDS ORDERED: AMLODIPINE 5MG TABLET PO SCH ×2 (09:00→15:30)
[2018-08-13] MEDS ORDERED: METOPROLOL TARTRATE 25MG TABLET PO SCH (09:00)
[2018-08-13 09:08] LABS: BG CARBOXYHEMOGLOBIN 0.5 % (0.5-1.5); BG DEOXYHEMOGLOBIN 6.3 % (0.0-5.0); BG FRACTION INSPIRED OXYGEN 40; BG HCO3 ACT 29.8 mmol/L (22.0-26.0); BG METHEMOGLOBIN 0.3 % (0.0-1.5); BG OXYGEN SATURATION 93.6 % (92.0-98.5); BG OXYHEMOGLOBIN 92.9 % (94.0-97.0); BG PCO2 44.4 mmHg (35.0-45.0); BG PH 7.444 (7.350-7.450); BG PO2 69.4 mmHg (75.0-100.0); BG SAMPLE SITE RIGHT RADIAL; BG TIDAL VOLUME(mL) 600 mL; BG TOTAL HEMOGLOBIN 13.1 g/dL (12.0-18.0); BG VENT MODE VENT - A/C; BG VENT RATE 12 set
[2018-08-13] MEDS: CLONIDINE 0.1MG TABLET PO PRN (10:48)
[2018-08-13] MEDS: INSULIN GLARGINE UD 100 UNITS/ML SYR SUBCUT SCH ×2 (10:54→21:13)
[2018-08-13] MEDS: HYDRALAZINE 20MG/ML VIAL IV NR ×2 (11:58→13:30)
[2018-08-13] MEDS: METOPROLOL TARTRATE 50MG TABLET PO SCH ×2 (11:59→21:12)
[2018-08-13 12:08] LABS: BG BASE EXCESS 6.5 mmol/L (-2.0-2.0); BG CARBOXYHEMOGLOBIN 0.5 % (0.5-1.5); BG DEOXYHEMOGLOBIN 6.8 % (0.0-5.0); BG FRACTION INSPIRED OXYGEN 40; BG HCO3 ACT 30.8 mmol/L (22.0-26.0); BG METHEMOGLOBIN 0.2 % (0.0-1.5); BG OXYGEN SATURATION 93.2 % (92.0-98.5); BG OXYHEMOGLOBIN 92.5 % (94.0-97.0); BG PCO2 42.7 mmHg (35.0-45.0); BG PH 7.476 (7.350-7.450); BG PO2 65.9 mmHg (75.0-100.0); BG PRESSURE SUPPORT 8; BG SAMPLE SITE RIGHT RADIAL; BG TOTAL HEMOGLOBIN 13.6 g/dL (12.0-18.0); BG VENT MODE VENT - CPAP
[2018-08-13] MEDS ORDERED: POTASSIUM CHLORIDE INJ 40 MEQ in DEXT 5% WATER 250 ML IV NR (13:00)
[2018-08-13] MEDS: CLONIDINE 0.1MG TABLET NG SCH ×2 (13:09→21:12)
[2018-08-13] MEDS: IPRATROPIUM/ALBUTEROL 0.5-3(2.5)MG/3ML NEB HHN PRN ×2 (13:23→18:23)
[2018-08-13] MEDS ORDERED: HYDRALAZINE HCL 50MG TABLET PO SCH (14:00)
[2018-08-13] MEDS ORDERED: LABETALOL 5MG/ML SYR 20 MG/4 ML SYRINGE IV NR (16:00)
[2018-08-13] MEDS ORDERED: HYDRALAZINE HCL 50MG TABLET PO NR (16:15)
[2018-08-13] MEDS: NIFEDIPINE XL 60MG TAB PO SCH (16:31)
[2018-08-13] MEDS: MORPHINE SULFATE 2 MG/ML CPJ (NOT FOR IM USE) IV PRN (16:32)
[2018-08-13] MEDS: HYDRALAZINE HCL 100MG TABLET PO SCH (21:12)
[2018-08-14] VITALS (44 sets, daily range): BP systolic 112–186; BP diastolic 64–136
[2018-08-14] MEDS: BLOOD SUGAR DIAGNOSTIC STRIP TEST SCH ×4 (00:45→17:27)
[2018-08-14] MEDS: PIPERACILLIN/TAZ 2.25G PREMIX 50 ML IV SCH ×3 (00:45→15:56)
[2018-08-14] MEDS: INSULIN LISPRO 100 UNITS/ML SUBCUT SCH ×4 (00:46→17:31)
[2018-08-14] MEDS: IPRATROPIUM/ALBUTEROL 0.5-3(2.5)MG/3ML NEB HHN SCH ×6 (01:08→20:27)
[2018-08-14] MEDS: HYDRALAZINE 20MG/ML VIAL IV PRN ×2 (01:26→15:57)
[2018-08-14] MEDS: CLONIDINE 0.1MG TABLET PO PRN ×2 (03:51→17:30)
[2018-08-14] MEDS: HYDRALAZINE HCL 100MG TABLET PO SCH ×3 (06:21→22:53)
[2018-08-14] MEDS: CLONIDINE 0.1MG TABLET NG SCH ×3 (06:21→22:52)
[2018-08-14 08:11] LABS: BG BASE EXCESS 5.5 mmol/L (-2.0-2.0); BG CARBOXYHEMOGLOBIN 0.8 % (0.5-1.5); BG DEOXYHEMOGLOBIN 8.4 % (0.0-5.0); BG FRACTION INSPIRED OXYGEN 32; BG HCO3 ACT 28.9 mmol/L (22.0-26.0); BG METHEMOGLOBIN 0.2 % (0.0-1.5); BG OXYGEN SATURATION 91.5 % (92.0-98.5); BG OXYHEMOGLOBIN 90.6 % (94.0-97.0); BG PCO2 37.7 mmHg (35.0-45.0); BG PH 7.502 (7.350-7.450); BG PO2 58.9 mmHg (75.0-100.0); BG SAMPLE SITE RIGHT FEMORAL; BG TOTAL HEMOGLOBIN 13.3 g/dL (12.0-18.0); BG VENT MODE NASAL CANNULA
[2018-08-14] MEDS: LORAZEPAM 2MG/ML CPJ IV PRN ×3 (08:38→18:52)
[2018-08-14] MEDS: THIAMINE HCL 100MG TABLET PO SCH (08:39)
[2018-08-14] MEDS: LEVETIRACETAM 500MG TABLET PO SCH ×2 (08:39→15:57)
[2018-08-14] MEDS: FOLIC ACID 1MG TABLET PO SCH (08:39)
[2018-08-14] MEDS: FAMOTIDINE 20MG TABLET PO SCH (08:39)
[2018-08-14] MEDS: MULTIVITAMINS,THER W-MINERALS TABLET PO SCH (08:39)
[2018-08-14] MEDS: NIFEDIPINE XL 60MG TAB PO SCH ×2 (09:00→20:49)
[2018-08-14] MEDS: METOPROLOL TARTRATE 50MG TABLET PO SCH ×2 (09:00→20:49)
[2018-08-14 09:38] LABS: HEMATOCRIT. 36.8 % (42.0-52.0); HEMOGLOBIN. 12.4 g/dL (14.0-18.0); MEAN CORPUSCULAR HEMOGLOBIN 33.3 pg (28.0-32.0); MEAN CORPUSCULAR VOLUME 98.8 fL (80.0-94.0); MEAN PLATELET VOLUME 9.1 fl (7.4-10.4); PLATELET 114 x1000/uL (130-400); RED BLOOD CELL COUNT 3.73 mill/uL (4.7-6.1); RED CELL DISTRIBUTION WIDTH 14.2 % (11.6-14.6)
[2018-08-14 09:48] LABS: PHOSPHORUS 4.6 mg/dL (2.5-4.9)
[2018-08-14] MEDS ORDERED: POTASSIUM CHLORIDE 20MEQ/PACKET PO SCH (11:00)
[2018-08-14 11:06] LABS: PLATELET ESTIMATE DECREASED
[2018-08-14] MEDS: CALCITRIOL 0.25MCG CAPSULE PO SCH (11:40)
[2018-08-14] MEDS: INSULIN GLARGINE UD 100 UNITS/ML SYR SUBCUT SCH ×2 (11:40→22:48)
[2018-08-14] MEDS: MORPHINE SULFATE 2 MG/ML CPJ (NOT FOR IM USE) IV PRN (16:07)
[2018-08-14] MEDS: ONDANSETRON HCL 4MG/2ML INJ IV PRN (19:23)
[2018-08-15] VITALS (54 sets, daily range): BP systolic 129–179; BP diastolic 77–119
[2018-08-15] MEDS: PIPERACILLIN/TAZ 2.25G PREMIX 50 ML IV SCH ×3 (00:17→17:23)
[2018-08-15] MEDS: BLOOD SUGAR DIAGNOSTIC STRIP TEST SCH ×4 (00:17→17:24)
[2018-08-15] MEDS: IPRATROPIUM/ALBUTEROL 0.5-3(2.5)MG/3ML NEB HHN SCH ×6 (01:00→20:33)
[2018-08-15 05:19] LABS: HEMATOCRIT. 35.6 % (42.0-52.0); HEMOGLOBIN. 11.9 g/dL (14.0-18.0); MEAN CORPUSCULAR HEMOGLOBIN 33.1 pg (28.0-32.0); MEAN CORPUSCULAR VOLUME 98.9 fL (80.0-94.0); MEAN PLATELET VOLUME 9.3 fl (7.4-10.4); PLATELET 139 x1000/uL (130-400); RED CELL DISTRIBUTION WIDTH 14.3 % (11.6-14.6)
[2018-08-15 05:29] LABS: CHLORIDE 103 mEq/L (98-107)
[2018-08-15 05:35] LABS: PHOSPHORUS 3.6 mg/dL (2.5-4.9)
[2018-08-15] MEDS: INSULIN LISPRO 100 UNITS/ML SUBCUT SCH ×4 (06:00→18:00)
[2018-08-15] MEDS: CLONIDINE 0.1MG TABLET NG SCH ×2 (06:02→14:00)
[2018-08-15] MEDS: HYDRALAZINE HCL 100MG TABLET PO SCH ×3 (06:02→21:39)
[2018-08-15 08:54] LABS: PLATELET ESTIMATE NORMAL
[2018-08-15] MEDS: FAMOTIDINE 20MG TABLET PO SCH (09:00)
[2018-08-15] MEDS: NIFEDIPINE XL 60MG TAB PO SCH (09:00)
[2018-08-15] MEDS: FOLIC ACID 1MG TABLET PO SCH (09:00)
[2018-08-15] MEDS: MULTIVITAMINS,THER W-MINERALS TABLET PO SCH (09:00)
[2018-08-15] MEDS: THIAMINE HCL 100MG TABLET PO SCH (09:00)
[2018-08-15] MEDS: CALCITRIOL 0.25MCG CAPSULE PO SCH (09:00)
[2018-08-15] MEDS: LEVETIRACETAM 500MG TABLET PO SCH ×2 (09:00→17:23)
[2018-08-15] MEDS: METOPROLOL TARTRATE 50MG TABLET PO SCH ×2 (09:30→20:39)
[2018-08-15] MEDS: INSULIN GLARGINE UD 100 UNITS/ML SYR SUBCUT SCH ×2 (10:00→21:40)
[2018-08-15 11:40] LABS: BG BASE EXCESS 2.9 mmol/L (-2.0-2.0); BG CARBOXYHEMOGLOBIN 0.6 % (0.5-1.5); BG DEOXYHEMOGLOBIN 7.3 % (0.0-5.0); BG HCO3 ACT 26.9 mmol/L (22.0-26.0); BG METHEMOGLOBIN 0.2 % (0.0-1.5); BG OXYGEN SATURATION 92.6 % (92.0-98.5); BG OXYHEMOGLOBIN 91.9 % (94.0-97.0); BG PCO2 38.8 mmHg (35.0-45.0); BG PH 7.458 (7.350-7.450); BG PO2 66.8 mmHg (75.0-100.0); BG SAMPLE SITE RIGHT RADIAL; BG TOTAL HEMOGLOBIN 12.8 g/dL (12.0-18.0); BG VENT MODE NASAL CANNULA
[2018-08-15] MEDS: MORPHINE SULFATE 2 MG/ML CPJ (NOT FOR IM USE) IV PRN ×2 (15:01→20:00)
[2018-08-15] MEDS: ONDANSETRON HCL 4MG/2ML INJ IV PRN (15:15)
[2018-08-15] MEDS: HYDRALAZINE 20MG/ML VIAL IV PRN (17:21)
[2018-08-15] MEDS: LORAZEPAM 2MG/ML CPJ IV PRN ×2 (17:35→22:46)
[2018-08-15] MEDS: CLONIDINE 0.1MG TABLET PO PRN (18:08)
[2018-08-15] MEDS: AMLODIPINE 10MG TABLET NG SCH (20:39)
[2018-08-15] MEDS: CLONIDINE 0.2MG TABLET PO SCH (21:39)
[2018-08-16] VITALS (13 sets, daily range): BP systolic 154–172; BP diastolic 65–112
[2018-08-16] MEDS: BLOOD SUGAR DIAGNOSTIC STRIP TEST SCH ×5 (00:18→23:40)
[2018-08-16] MEDS: HYDRALAZINE 20MG/ML VIAL IV PRN ×2 (00:18→18:42)
[2018-08-16] MEDS: PIPERACILLIN/TAZ 2.25G PREMIX 50 ML IV SCH ×3 (00:19→16:34)
[2018-08-16] MEDS: IPRATROPIUM/ALBUTEROL 0.5-3(2.5)MG/3ML NEB HHN SCH ×6 (00:42→21:19)
[2018-08-16] MEDS: CLONIDINE 0.1MG TABLET PO PRN (01:57)
[2018-08-16] MEDS: CLONIDINE 0.2MG TABLET PO SCH ×3 (05:37→22:19)
[2018-08-16] MEDS: HYDRALAZINE HCL 100MG TABLET PO SCH ×3 (05:37→22:19)
[2018-08-16] MEDS: LORAZEPAM 2MG/ML CPJ IV PRN ×2 (08:00→19:31)
[2018-08-16] MEDS: LEVETIRACETAM 500MG TABLET PO SCH ×2 (08:24→16:34)
[2018-08-16] MEDS: CALCITRIOL 0.25MCG CAPSULE PO SCH (08:24)
[2018-08-16] MEDS: THIAMINE HCL 100MG TABLET PO SCH (08:24)
[2018-08-16] MEDS: FAMOTIDINE 20MG TABLET PO SCH (08:24)
[2018-08-16] MEDS: MULTIVITAMINS,THER W-MINERALS TABLET PO SCH (08:24)
[2018-08-16] MEDS: FOLIC ACID 1MG TABLET PO SCH (08:24)
[2018-08-16] MEDS: INSULIN LISPRO 100 UNITS/ML SUBCUT SCH ×5 (08:44→23:41)
[2018-08-16] MEDS: METOPROLOL TARTRATE 50MG TABLET PO SCH ×2 (09:00→20:30)
[2018-08-16] MEDS: AMLODIPINE 10MG TABLET NG SCH (09:00)
[2018-08-16 09:07] LABS: HEMOGLOBIN. 11.2 g/dL (14.0-18.0); MEAN CORPUSCULAR HEMOGLOBIN 33.2 pg (28.0-32.0); MEAN CORPUSCULAR VOLUME 98.1 fL (80.0-94.0); MEAN PLATELET VOLUME 9.2 fl (7.4-10.4); PLATELET 206 x1000/uL (130-400); RED BLOOD CELL COUNT 3.37 mill/uL (4.7-6.1); RED CELL DISTRIBUTION WIDTH 14.3 % (11.6-14.6)
[2018-08-16 09:14] LABS: PHOSPHORUS 4.6 mg/dL (2.5-4.9)
[2018-08-16] MEDS: INSULIN GLARGINE UD 100 UNITS/ML SYR SUBCUT SCH ×2 (12:36→23:48)
[2018-08-16] MEDS ORDERED: CHLORPROMAZINE HCL 25MG/1ML AMP IM SCH (14:00)
[2018-08-16 16:29] LABS: BG BASE EXCESS 2.5 mmol/L (-2.0-2.0); BG CARBOXYHEMOGLOBIN 0.5 % (0.5-1.5); BG DEOXYHEMOGLOBIN 7.1 % (0.0-5.0); BG FRACTION INSPIRED OXYGEN 32; BG HCO3 ACT 26.1 mmol/L (22.0-26.0); BG METHEMOGLOBIN 0.3 % (0.0-1.5); BG OXYGEN SATURATION 92.8 % (92.0-98.5); BG OXYHEMOGLOBIN 92.1 % (94.0-97.0); BG PH 7.467 (7.350-7.450); BG PO2 64.2 mmHg (75.0-100.0); BG SAMPLE SITE RIGHT RADIAL; BG TOTAL HEMOGLOBIN 12.6 g/dL (12.0-18.0); BG VENT MODE NASAL CANNULA
[2018-08-16] MEDS: FUROSEMIDE 100MG/10ML VIAL IVP SCH (17:38)
[2018-08-16] MEDS: METOCLOPRAMIDE HCL 10MG/2ML VIAL IV SCH ×2 (17:39→23:40)
[2018-08-16 20:26] LABS: PLATELET ESTIMATE NORMAL
[2018-08-17] VITALS (13 sets, daily range): BP systolic 134–174; BP diastolic 92–109
[2018-08-17] MEDS: IPRATROPIUM/ALBUTEROL 0.5-3(2.5)MG/3ML NEB HHN SCH ×6 (00:50→20:22)
[2018-08-17] MEDS: HYDRALAZINE 20MG/ML VIAL IV PRN ×2 (00:58→18:55)
[2018-08-17] MEDS: LORAZEPAM 2MG/ML CPJ IV PRN (00:59)
[2018-08-17] MEDS: CLONIDINE 0.2MG TABLET PO SCH ×2 (06:00→14:23)
[2018-08-17] MEDS: BLOOD SUGAR DIAGNOSTIC STRIP TEST SCH ×3 (06:00→17:42)
[2018-08-17] MEDS: HYDRALAZINE HCL 100MG TABLET PO SCH ×2 (06:00→14:23)
[2018-08-17] MEDS: METOCLOPRAMIDE HCL 10MG/2ML VIAL IV SCH ×2 (06:01→12:46)
[2018-08-17] MEDS: FUROSEMIDE 100MG/10ML VIAL IVP SCH ×2 (06:01→17:41)
[2018-08-17] MEDS: INSULIN LISPRO 100 UNITS/ML SUBCUT SCH ×3 (06:29→17:41)
[2018-08-17 07:11] LABS: BG BASE EXCESS 1.7 mmol/L (-2.0-2.0); BG CARBOXYHEMOGLOBIN 0.6 % (0.5-1.5); BG DEOXYHEMOGLOBIN 8.3 % (0.0-5.0); BG HCO3 ACT 24.5 mmol/L (22.0-26.0); BG METHEMOGLOBIN 0.2 % (0.0-1.5); BG OXYGEN SATURATION 91.6 % (92.0-98.5); BG OXYHEMOGLOBIN 90.9 % (94.0-97.0); BG PCO2 32.9 mmHg (35.0-45.0); BG PO2 60.4 mmHg (75.0-100.0); BG SAMPLE SITE RIGHT RADIAL; BG TOTAL HEMOGLOBIN 13.5 g/dL (12.0-18.0); BG VENT MODE NASAL CANNULA
[2018-08-17 08:33] LABS: HEMATOCRIT. 34.3 % (42.0-52.0); HEMOGLOBIN. 11.6 g/dL (14.0-18.0); MEAN CORPUSCULAR HEMOGLOBIN 33.1 pg (28.0-32.0); MEAN CORPUSCULAR VOLUME 98.1 fL (80.0-94.0); MEAN PLATELET VOLUME 9.1 fl (7.4-10.4); PLATELET 241 x1000/uL (130-400); RED CELL DISTRIBUTION WIDTH 14.3 % (11.6-14.6)
[2018-08-17 08:41] LABS: PHOSPHORUS 4.3 mg/dL (2.5-4.9)
[2018-08-17] MEDS: CALCITRIOL 0.25MCG CAPSULE PO SCH (10:12)
[2018-08-17] MEDS: THIAMINE HCL 100MG TABLET PO SCH (10:12)
[2018-08-17] MEDS: FOLIC ACID 1MG TABLET PO SCH (10:12)
[2018-08-17] MEDS: LEVETIRACETAM 500MG TABLET PO SCH ×2 (10:12→17:41)
[2018-08-17] MEDS: FAMOTIDINE 20MG TABLET PO SCH (10:16)
[2018-08-17] MEDS: MULTIVITAMINS,THER W-MINERALS TABLET PO SCH (10:16)
[2018-08-17] MEDS: INSULIN GLARGINE UD 100 UNITS/ML SYR SUBCUT SCH (10:23)
[2018-08-17] MEDS ORDERED: NIFEDIPINE XL 60MG TAB PO SCH (11:00)
[2018-08-17] MEDS: METOPROLOL TARTRATE 100MG TABLET PO SCH (12:46)
[2018-08-17 13:50] LABS: NUCLEATED RED BLOOD CELLS 1 /100 WBC; PLATELET ESTIMATE NORMAL
[2018-08-17 15:36] LABS: HEPATITIS B SURFACE ANTIGEN NEGATIVE
[2018-08-17 16:06] LABS: HEPATITIS A AB IGM NEGATIVE (NEGATIVE)
[2018-08-17] MEDS: ATOVAQUONE 750 MG/5 ML ORAL.SUSP PO SCH (17:44)
[2018-08-17] MEDS ORDERED: LORAZEPAM 2MG/ML CPJ IV PRN (21:15)
[2018-08-17] MEDS: ONDANSETRON HCL 4MG/2ML INJ IV PRN (22:04)
[2018-08-17] MEDS: MORPHINE SULFATE 2 MG/ML CPJ (NOT FOR IM USE) IV PRN (22:05)
[2018-08-18] VITALS (11 sets, daily range): BP systolic 116–167; BP diastolic 75–106
[2018-08-18] MEDS: METOPROLOL TARTRATE 100MG TABLET PO SCH ×3 (00:05→20:45)
[2018-08-18] MEDS: CLONIDINE 0.2MG TABLET PO SCH ×4 (00:06→22:18)
[2018-08-18] MEDS: HYDRALAZINE HCL 100MG TABLET PO SCH ×4 (00:07→22:18)
[2018-08-18] MEDS: BLOOD SUGAR DIAGNOSTIC STRIP TEST SCH ×5 (00:07→22:18)
[2018-08-18] MEDS: INSULIN GLARGINE UD 100 UNITS/ML SYR SUBCUT SCH ×3 (00:13→22:18)
[2018-08-18] MEDS: INSULIN LISPRO 100 UNITS/ML SUBCUT SCH ×5 (00:15→22:19)
[2018-08-18] MEDS: IPRATROPIUM/ALBUTEROL 0.5-3(2.5)MG/3ML NEB HHN SCH ×6 (01:11→20:00)
[2018-08-18] MEDS: FUROSEMIDE 100MG/10ML VIAL IVP SCH ×2 (06:00→17:20)
[2018-08-18] MEDS: THIAMINE HCL 100MG TABLET PO SCH (09:01)
[2018-08-18] MEDS: LEVETIRACETAM 500MG TABLET PO SCH ×2 (09:01→17:19)
[2018-08-18] MEDS: FAMOTIDINE 20MG TABLET PO SCH (09:01)
[2018-08-18] MEDS: FOLIC ACID 1MG TABLET PO SCH (09:01)
[2018-08-18] MEDS: CALCITRIOL 0.25MCG CAPSULE PO SCH (09:01)
[2018-08-18] MEDS: MULTIVITAMINS,THER W-MINERALS TABLET PO SCH (09:01)
[2018-08-18] MEDS: ATOVAQUONE 750 MG/5 ML ORAL.SUSP PO SCH (09:02)
[2018-08-18 09:18] LABS: HEMATOCRIT. 32.4 % (42.0-52.0); MEAN CORPUSCULAR HEMOGLOBIN 33.4 pg (28.0-32.0); MEAN CORPUSCULAR VOLUME 98.8 fL (80.0-94.0); MEAN PLATELET VOLUME 8.7 fl (7.4-10.4); PLATELET 273 x1000/uL (130-400); RED BLOOD CELL COUNT 3.28 mill/uL (4.7-6.1); RED CELL DISTRIBUTION WIDTH 14.6 % (11.6-14.6)
[2018-08-18 09:45] LABS: PHOSPHORUS 6.3 mg/dL (2.5-4.9)
[2018-08-18] MEDS ORDERED: SODIUM BICARBONATE 4% (2.4MEQ) 5ML VIAL IV ONE (10:08)
[2018-08-18] MEDS ORDERED: LIDOCAINE HCL 1% 20ML VIAL (Pyxis) INJ ONE (10:09)
[2018-08-18] MEDS ORDERED: MIDAZOLAM HCL 2 MG/2 ML VIAL ONE (10:15)
[2018-08-18] MEDS ORDERED: LORAZEPAM 2MG/ML CPJ IV PRN (11:15)
[2018-08-18 12:20] LABS: HEPATITIS B SURFACE AB < 3.1 mIU/mL
[2018-08-18 15:48] LABS: PLATELET ESTIMATE NORMAL
[2018-08-18] MEDS: NIFEDIPINE XL 60MG TAB PO SCH (20:45)
[2018-08-18] MEDS: ACETAMINOPHEN 325MG TABLET PO PRN (20:45)
[2018-08-19] VITALS: BP 152/77
[2018-08-19] MEDS ORDERED: LORAZEPAM 2MG/ML CPJ IV PRN (05:00)
[2018-08-19] MEDS: INSULIN LISPRO 100 UNITS/ML SUBCUT SCH ×3 (06:00→18:00)
[2018-08-19] MEDS: CLONIDINE 0.2MG TABLET PO SCH ×3 (06:00→22:45)
[2018-08-19] MEDS: HYDRALAZINE HCL 100MG TABLET PO SCH ×3 (06:00→22:46)
[2018-08-19] MEDS: BLOOD SUGAR DIAGNOSTIC STRIP TEST SCH ×3 (06:00→18:00)
[2018-08-19] MEDS: FUROSEMIDE 100MG/10ML VIAL IVP SCH ×2 (06:18→17:30)
[2018-08-19 07:10] LABS: HEMATOCRIT. 30.3 % (42.0-52.0); HEMOGLOBIN. 10.5 g/dL (14.0-18.0); MEAN CORPUSCULAR VOLUME 98.1 fL (80.0-94.0); MEAN PLATELET VOLUME 8.5 fl (7.4-10.4); PLATELET 277 x1000/uL (130-400); RED BLOOD CELL COUNT 3.09 mill/uL (4.7-6.1); RED CELL DISTRIBUTION WIDTH 14.4 % (11.6-14.6)
[2018-08-19] MEDS ORDERED: LIDOCAINE HCL 1% 20ML VIAL (Pyxis) INJ ONE (07:16)
[2018-08-19] MEDS ORDERED: SODIUM BICARBONATE 4% (2.4MEQ) 5ML VIAL IV ONE (07:16)
[2018-08-19 07:44] LABS: PHOSPHORUS 5.2 mg/dL (2.5-4.9)
[2018-08-19] MEDS: IPRATROPIUM/ALBUTEROL 0.5-3(2.5)MG/3ML NEB HHN SCH ×5 (07:45→21:07)
[2018-08-19] MEDS ORDERED: MIDAZOLAM HCL 2 MG/2 ML VIAL ONE (07:48)
[2018-08-19] MEDS ORDERED: PROPOFOL 200MG/20ML VIAL IV ONE (07:48)
[2018-08-19] MEDS ORDERED: FENTANYL CITRATE/PF 50MCG/ML 2ML VIAL ONE (07:48)
[2018-08-19] MEDS ORDERED: GLYCOPYRROLATE 0.2 MG/ML 2ML VIAL ONE (07:51)
[2018-08-19] MEDS ORDERED: MEPERIDINE HCL/PF 25MG/ML CPJ IV PRN (09:00)
[2018-08-19] MEDS: ENOXAPARIN 30MG/0.3ML SYR SUBCUT SCH (09:00)
[2018-08-19] MEDS ORDERED: LABETALOL 5MG/ML SYR 20 MG/4 ML SYRINGE IV ONE (09:00)
[2018-08-19] MEDS ORDERED: MORPHINE SULFATE 2 MG/ML CPJ (NOT FOR IM USE) IV PRN (09:00)
[2018-08-19] MEDS ORDERED: FENTANYL CITRATE/PF 50MCG/ML 2ML VIAL IV PRN (09:00)
[2018-08-19] MEDS ORDERED: ONDANSETRON HCL 4MG/2ML INJ IV PRN (09:00)
[2018-08-19] MEDS ORDERED: HYDROMORPHONE HCL/PF 2MG/ML CPJ IV PRN (09:00)
[2018-08-19] MEDS ORDERED: LABETALOL HCL 5MG/ML VIAL 20ML IV ONE (09:36)
[2018-08-19] MEDS ORDERED: LABETALOL 5MG/ML SYR 20 MG/4 ML SYRINGE IV NR (10:22)
[2018-08-19 12:00] VITALS: BP 140/50
[2018-08-19] MEDS: THIAMINE HCL 100MG TABLET PO SCH (12:06)
[2018-08-19] MEDS: METOPROLOL TARTRATE 100MG TABLET PO SCH ×2 (12:06→21:32)
[2018-08-19] MEDS: QUETIAPINE FUMARATE 50MG TABLET PO SCH (12:07)
[2018-08-19] MEDS: LEVETIRACETAM 500MG TABLET PO SCH ×2 (12:07→17:02)
[2018-08-19] MEDS: FAMOTIDINE 20MG TABLET PO SCH (12:07)
[2018-08-19] MEDS: FOLIC ACID 1MG TABLET PO SCH (12:07)
[2018-08-19] MEDS: MULTIVITAMINS,THER W-MINERALS TABLET PO SCH (12:07)
[2018-08-19] MEDS: CALCITRIOL 0.25MCG CAPSULE PO SCH (12:08)
[2018-08-19] MEDS: NIFEDIPINE XL 60MG TAB PO SCH ×2 (12:09→21:33)
[2018-08-19] MEDS: INSULIN GLARGINE UD 100 UNITS/ML SYR SUBCUT SCH ×2 (12:11→22:00)
[2018-08-19 15:29] LABS: BG BASE EXCESS 6.6 mmol/L (-2.0-2.0); BG CARBOXYHEMOGLOBIN 0.5 % (0.5-1.5); BG DEOXYHEMOGLOBIN 20.7 % (0.0-5.0); BG FRACTION INSPIRED OXYGEN 21; BG HCO3 ACT 32.4 mmol/L (22.0-26.0); BG METHEMOGLOBIN 0.2 % (0.0-1.5); BG OXYGEN SATURATION 79.2 % (92.0-98.5); BG OXYHEMOGLOBIN 78.6 % (94.0-97.0); BG PCO2 52.4 mmHg (35.0-45.0); BG PH 7.409 (7.350-7.450); BG PO2 44.8 mmHg (75.0-100.0); BG SAMPLE SITE RIGHT BRACHIAL; BG TOTAL HEMOGLOBIN 10.7 g/dL (12.0-18.0); BG VENT MODE ROOM AIR
[2018-08-19 16:00] VITALS: BP 157/98
[2018-08-19 16:25] LABS: PLATELET ESTIMATE NORMAL
[2018-08-19] MEDS: LORAZEPAM 2MG/ML CPJ IV PRN (17:02)
[2018-08-19 20:00] VITALS: BP 152/93
[2018-08-20] VITALS (14 sets, daily range): BP systolic 118–151; BP diastolic 54–100
[2018-08-20] MEDS: IPRATROPIUM/ALBUTEROL 0.5-3(2.5)MG/3ML NEB HHN SCH ×6 (00:47→20:50)
[2018-08-20] MEDS: HYDRALAZINE HCL 100MG TABLET PO SCH ×3 (05:52→21:57)
[2018-08-20] MEDS: FUROSEMIDE 100MG/10ML VIAL IVP SCH (05:54)
[2018-08-20] MEDS: CLONIDINE 0.2MG TABLET PO SCH ×3 (05:54→21:56)
[2018-08-20] MEDS: INSULIN LISPRO 100 UNITS/ML SUBCUT SCH ×2 (06:00)
[2018-08-20] MEDS: BLOOD SUGAR DIAGNOSTIC STRIP TEST SCH ×2 (06:53)
[2018-08-20 09:13] LABS: BASOPHILS % 0.6 % (0.0-2.0); EOSINOPHILS % 1.8 % (0.0-5.0); HEMATOCRIT. 31.9 % (42.0-52.0); HEMOGLOBIN. 10.9 g/dL (14.0-18.0); LYMPHOCYTES % 14.1 % (20.0-50.0); MEAN CORPUSCULAR HEMOGLOBIN 33.8 pg (28.0-32.0); MEAN CORPUSCULAR VOLUME 98.5 fL (80.0-94.0); MEAN PLATELET VOLUME 8.5 fl (7.4-10.4); MONOCYTES % 14.6 % (2.0-8.0); NEUTROPHILS % 68.9 % (40.0-76.0); PLATELET 366 x1000/uL (130-400); RED BLOOD CELL COUNT 3.24 mill/uL (4.7-6.1); RED CELL DISTRIBUTION WIDTH 14.1 % (11.6-14.6)
[2018-08-20 09:25] LABS: CHLORIDE 100 mEq/L (98-107)
[2018-08-20 09:34] LABS: PHOSPHORUS 6.5 mg/dL (2.5-4.9)
[2018-08-20] MEDS: QUETIAPINE FUMARATE 50MG TABLET PO SCH (10:57)
[2018-08-20] MEDS: METOPROLOL TARTRATE 100MG TABLET PO SCH ×2 (10:58→21:57)
[2018-08-20] MEDS: FOLIC ACID 1MG TABLET PO SCH (10:58)
[2018-08-20] MEDS: LEVETIRACETAM 500MG TABLET PO SCH ×2 (10:58→17:56)
[2018-08-20] MEDS: NIFEDIPINE XL 60MG TAB PO SCH ×2 (10:59→21:56)
[2018-08-20] MEDS: MULTIVITAMINS,THER W-MINERALS TABLET PO SCH (11:00)
[2018-08-20] MEDS: FAMOTIDINE 20MG TABLET PO SCH (11:01)
[2018-08-20] MEDS: THIAMINE HCL 100MG TABLET PO SCH (11:01)
[2018-08-20] MEDS: ENOXAPARIN 30MG/0.3ML SYR SUBCUT SCH (11:02)
[2018-08-21] VITALS (13 sets, daily range): BP systolic 129–156; BP diastolic 74–94
[2018-08-21] MEDS: IPRATROPIUM/ALBUTEROL 0.5-3(2.5)MG/3ML NEB HHN SCH ×5 (00:40→16:00)
[2018-08-21] MEDS: ACETAMINOPHEN 325MG TABLET PO PRN (01:35)
[2018-08-21 08:06] LABS: BASOPHILS % 0.8 % (0.0-2.0); EOSINOPHILS % 1.3 % (0.0-5.0); HEMATOCRIT. 33.3 % (42.0-52.0); HEMOGLOBIN. 11.2 g/dL (14.0-18.0); LYMPHOCYTES % 17.2 % (20.0-50.0); MEAN CORPUSCULAR VOLUME 98.8 fL (80.0-94.0); MEAN PLATELET VOLUME 8.5 fl (7.4-10.4); NEUTROPHILS % 66.7 % (40.0-76.0); PLATELET 390 x1000/uL (130-400); RED BLOOD CELL COUNT 3.37 mill/uL (4.7-6.1)
[2018-08-21] MEDS: CLONIDINE 0.2MG TABLET PO SCH ×2 (08:09→13:53)
[2018-08-21] MEDS: HYDRALAZINE HCL 100MG TABLET PO SCH ×3 (08:09→21:47)
[2018-08-21 08:31] LABS: CHLORIDE 106 mEq/L (98-107)
[2018-08-21] MEDS: NIFEDIPINE XL 60MG TAB PO SCH ×2 (08:32→22:05)
[2018-08-21] MEDS: THIAMINE HCL 100MG TABLET PO SCH (08:32)
[2018-08-21] MEDS: MULTIVITAMINS,THER W-MINERALS TABLET PO SCH (08:32)
[2018-08-21] MEDS: FAMOTIDINE 20MG TABLET PO SCH (08:32)
[2018-08-21] MEDS: LEVETIRACETAM 500MG TABLET PO SCH ×2 (08:32→17:56)
[2018-08-21] MEDS: CALCITRIOL 0.25MCG CAPSULE PO SCH (08:33)
[2018-08-21] MEDS: ENOXAPARIN 30MG/0.3ML SYR SUBCUT SCH (08:33)
[2018-08-21] MEDS: QUETIAPINE FUMARATE 50MG TABLET PO SCH ×2 (08:33→17:56)
[2018-08-21] MEDS: FUROSEMIDE 40MG TABLET PO SCH (08:33)
[2018-08-21] MEDS: METOPROLOL TARTRATE 100MG TABLET PO SCH ×2 (08:34→22:06)
[2018-08-21 08:37] LABS: PHOSPHORUS 3.5 mg/dL (2.5-4.9)
[2018-08-21 09:27] LABS: BG BASE EXCESS -1.2 mmol/L (-2.0-2.0); BG CARBOXYHEMOGLOBIN 0.8 % (0.5-1.5); BG DEOXYHEMOGLOBIN 10.5 % (0.0-5.0); BG FRACTION INSPIRED OXYGEN 21; BG HCO3 ACT 23.4 mmol/L (22.0-26.0); BG METHEMOGLOBIN 0.2 % (0.0-1.5); BG OXYGEN SATURATION 89.4 % (92.0-98.5); BG OXYHEMOGLOBIN 88.5 % (94.0-97.0); BG PCO2 38.9 mmHg (35.0-45.0); BG PH 7.398 (7.350-7.450); BG PO2 62.8 mmHg (75.0-100.0); BG SAMPLE SITE RIGHT BRACHIAL; BG TOTAL HEMOGLOBIN 11.1 g/dL (12.0-18.0); BG VENT MODE ROOM AIR
[2018-08-21] MEDS: FOLIC ACID 1MG TABLET PO SCH (10:17)
[2018-08-21] MEDS: LORAZEPAM 2MG/ML CPJ IV PRN ×3 (11:23→21:48)
[2018-08-21] MEDS: CLONIDINE 0.3MG TABLET PO SCH (21:48)
[2018-08-22] VITALS (12 sets, daily range): BP systolic 108–148; BP diastolic 73–95
[2018-08-22] MEDS: IPRATROPIUM/ALBUTEROL 0.5-3(2.5)MG/3ML NEB HHN SCH ×6 (00:42→20:56)
[2018-08-22] MEDS: CLONIDINE 0.3MG TABLET PO SCH ×3 (06:17→21:37)
[2018-08-22] MEDS: HYDRALAZINE HCL 100MG TABLET PO SCH ×3 (06:21→21:37)
[2018-08-22 07:53] LABS: INR 1.2; PROTHROMBIN TIME 12.3 sec (9.6-11.0)
[2018-08-22 08:04] LABS: BASOPHILS % 1.1 % (0.0-2.0); EOSINOPHILS % 1.7 % (0.0-5.0); HEMATOCRIT. 32.6 % (42.0-52.0); LYMPHOCYTES % 19.6 % (20.0-50.0); MEAN CORPUSCULAR VOLUME 97.7 fL (80.0-94.0); MEAN PLATELET VOLUME 8.1 fl (7.4-10.4); NEUTROPHILS % 64.6 % (40.0-76.0); PLATELET 415 x1000/uL (130-400); RED BLOOD CELL COUNT 3.33 mill/uL (4.7-6.1); RED CELL DISTRIBUTION WIDTH 13.7 % (11.6-14.6)
[2018-08-22 08:32] LABS: CHLORIDE 107 mEq/L (98-107)
[2018-08-22 08:41] LABS: PHOSPHORUS 3.5 mg/dL (2.5-4.9)
[2018-08-22] MEDS: ENOXAPARIN 30MG/0.3ML SYR SUBCUT SCH (09:00)
[2018-08-22] MEDS: METOPROLOL TARTRATE 100MG TABLET PO SCH ×2 (09:21→21:37)
[2018-08-22] MEDS: MULTIVITAMINS,THER W-MINERALS TABLET PO SCH (09:21)
[2018-08-22] MEDS: FOLIC ACID 1MG TABLET PO SCH (09:21)
[2018-08-22] MEDS: NIFEDIPINE XL 60MG TAB PO SCH ×2 (09:21→21:37)
[2018-08-22] MEDS: QUETIAPINE FUMARATE 50MG TABLET PO SCH ×2 (09:22→16:46)
[2018-08-22] MEDS: CALCITRIOL 0.25MCG CAPSULE PO SCH (09:22)
[2018-08-22] MEDS: LEVETIRACETAM 500MG TABLET PO SCH ×2 (09:22→16:46)
[2018-08-22] MEDS: THIAMINE HCL 100MG TABLET PO SCH (09:22)
[2018-08-22] MEDS: FUROSEMIDE 40MG TABLET PO SCH (09:22)
[2018-08-22] MEDS: FAMOTIDINE 20MG TABLET PO SCH (09:22)
[2018-08-23] VITALS (13 sets, daily range): BP systolic 99–125; BP diastolic 68–84
[2018-08-23] MEDS: IPRATROPIUM/ALBUTEROL 0.5-3(2.5)MG/3ML NEB HHN SCH ×5 (00:52→16:15)
[2018-08-23] MEDS: CLONIDINE 0.3MG TABLET PO SCH ×2 (06:15→13:16)
[2018-08-23] MEDS: HYDRALAZINE HCL 100MG TABLET PO SCH ×2 (06:15→13:16)
[2018-08-23 06:49] LABS: BASOPHILS % 1.3 % (0.0-2.0); HEMATOCRIT. 34.5 % (42.0-52.0); HEMOGLOBIN. 11.7 g/dL (14.0-18.0); LYMPHOCYTES % 27.5 % (20.0-50.0); MEAN CORPUSCULAR VOLUME 97.5 fL (80.0-94.0); MEAN PLATELET VOLUME 8.1 fl (7.4-10.4); MONOCYTES % 13.7 % (2.0-8.0); NEUTROPHILS % 55.5 % (40.0-76.0); PLATELET 488 x1000/uL (130-400); RED BLOOD CELL COUNT 3.54 mill/uL (4.7-6.1); RED CELL DISTRIBUTION WIDTH 13.7 % (11.6-14.6)
[2018-08-23 07:24] LABS: PHOSPHORUS 3.8 mg/dL (2.5-4.9)
[2018-08-23] MEDS: FAMOTIDINE 20MG TABLET PO SCH (08:43)
[2018-08-23] MEDS: QUETIAPINE FUMARATE 50MG TABLET PO SCH (08:43)
[2018-08-23] MEDS: ENOXAPARIN 30MG/0.3ML SYR SUBCUT SCH (08:43)
[2018-08-23] MEDS: FUROSEMIDE 40MG TABLET PO SCH (08:43)
[2018-08-23] MEDS: FOLIC ACID 1MG TABLET PO SCH (08:43)
[2018-08-23] MEDS: METOPROLOL TARTRATE 100MG TABLET PO SCH (08:44)
[2018-08-23] MEDS: MULTIVITAMINS,THER W-MINERALS TABLET PO SCH (08:44)
[2018-08-23] MEDS: NIFEDIPINE XL 60MG TAB PO SCH (08:44)
[2018-08-23] MEDS: THIAMINE HCL 100MG TABLET PO SCH (08:45)
[2018-08-23] MEDS: CALCITRIOL 0.25MCG CAPSULE PO SCH (08:45)
[2018-08-23] MEDS: LEVETIRACETAM 500MG TABLET PO SCH (08:45)
[2018-08-23] MEDS ORDERED: MAGNESIUM 2 G PREMIX 50 ML IV NR (10:00)
[2018-08-24] MEDS ORDERED: FUROSEMIDE 40MG TABLET PO SCH (09:00)
== END 2018-08-23 18:30 | disposition home health service (06) | DRG 720 ==
LOC: ER 20:54 → EDBEDREQ 08-09 00:43 → EDBEDREQTM 08-09 01:27 → EDBEDREQ 08-09 01:27 → CVICU 08-09 01:42 → EDBEDREQSVC 08-09 01:45 → EDBEDREQTM 08-09 01:45 → EDBEDREQ 08-09 01:45 → ENRESERV 08-09 01:52 → 5EST 08-15 23:27
PROVIDERS: ADMIT Internal Medicine; ATTEND Internal Medicine
PROC: 5A1955Z Respiratory Ventilation, Greater than 96 Consecutive Hours (ICD-10-PCS; principal; 2018-08-09)
PROC: 4A00X4Z Measurement of Central Nervous Electrical Activity, External Approach (ICD-10-PCS; 2018-08-09)
PROC: 0BH17EZ Insertion of Endotracheal Airway into Trachea, Via Natural or Artificial Opening (ICD-10-PCS; 2018-08-09)
PROC: 5A1D70Z Performance of Urinary Filtration, Intermittent, Less than 6 Hours Per Day (ICD-10-PCS; 2018-08-09)
PROC: 5A1D70Z Performance of Urinary Filtration, Intermittent, Less than 6 Hours Per Day (ICD-10-PCS; 2018-08-11)
PROC: 02HV33Z Insertion of Infusion Device into Superior Vena Cava, Percutaneous Approach (ICD-10-PCS; 2018-08-12)
PROC: B548ZZA Ultrasonography of Superior Vena Cava, Guidance (ICD-10-PCS; 2018-08-12)
PROC: 5A1D70Z Performance of Urinary Filtration, Intermittent, Less than 6 Hours Per Day (ICD-10-PCS; 2018-08-16)
PROC: 5A1D70Z Performance of Urinary Filtration, Intermittent, Less than 6 Hours Per Day (ICD-10-PCS; 2018-08-17)
PROC: 0JH63XZ Insertion of Tunneled Vascular Access Device into Chest Subcutaneous Tissue and Fascia, Percutaneous Approach (ICD-10-PCS; 2018-08-19)
PROC: 02HV33Z Insertion of Infusion Device into Superior Vena Cava, Percutaneous Approach (ICD-10-PCS; 2018-08-19)
PROC: B5181ZA Fluoroscopy of Superior Vena Cava using Low Osmolar Contrast, Guidance (ICD-10-PCS; 2018-08-19)
PROC: B548ZZA Ultrasonography of Superior Vena Cava, Guidance (ICD-10-PCS; 2018-08-19)
DX: A41.9 Sepsis, unspecified organism (principal); N17.0 Acute kidney failure with tubular necrosis; J96.01 Acute respiratory failure with hypoxia; R65.21 Severe sepsis with septic shock; J69.0 Pneumonitis due to inhalation of food and vomit; G93.41 Metabolic encephalopathy; R13.10 Dysphagia, unspecified; M62.82 Rhabdomyolysis; E83.39 Other disorders of phosphorus metabolism; E11.9 Type 2 diabetes mellitus without complications; D64.9 Anemia, unspecified; E87.0 Hyperosmolality and hypernatremia; E87.8 Other disorders of electrolyte and fluid balance, not elsewhere classified; E87.5 Hyperkalemia; E78.1 Pure hyperglyceridemia; E83.51 Hypocalcemia; F10.10 Alcohol abuse, uncomplicated; F32.9 Major depressive disorder, single episode, unspecified; I10 Essential (primary) hypertension; Y90.6 Blood alcohol level of 120-199 mg/100 ml; E83.42 Hypomagnesemia; S00.12XA Contusion of left eyelid and periocular area, initial encounter; H10.89 Other conjunctivitis; Z78.1 Physical restraint status; Z82.49 Family history of ischemic heart disease and other diseases of the circulatory system; Z87.891 Personal history of nicotine dependence; Z91.19 Patient's noncompliance with other medical treatment and regimen; Z99.2 Dependence on renal dialysis; Z83.3 Family history of diabetes mellitus; W18.39XA Other fall on same level, initial encounter; Y93.89 Activity, other specified; Y92.89 Other specified places as the place of occurrence of the external cause; Y99.8 Other external cause status; Z79.84 Long term (current) use of oral hypoglycemic drugs
CPT/HCPCS: 36415; 36558; 36569; 36600; 70551; 71045; 71250; 76700; 76937; 77001; 78580; 80048; 80076; 80202; 80305; 80320; 82330; 82375; 82550; 82805; 82947; 82962; 83036; 83605; 83735; 84100; 84145; 84478; 84484; 86359; 86360; 86705; 86706; 86708; 86709; 86803; 87070; 87340; 87389; 92610; 93005; 93971; 94002; 94003; 94640; 94660; 96365; 96375; 97116; 97162; 97530; 99285; A6261; C1725; C1750; C1769; J0330; J0360; J1642; J1650; J1815; J1940; J1953; J2060; J2250; J2270; J2310; J2370; J2405; J2543; J2704; J2765; J3010; J3230; J3370; J3475; J3480; J3490; J7030; J7040; J7050; J7060; J7070; J7620; P9047; A4315; G0480

== ENCOUNTER 2018-09-12 14:48 | Emergency (ER) | payer OTHER ==
[~2018-09-12] VITALS: Ht 170.2 cm; Wt 64.0 kg
[~2018-09-12 14:48] MED LIST changes: -AMLO2.5T45 PO; -ASPI-1393 PO; -LISI40TA4 PO; -TH25 PO
[2018-09-12] MEDS ORDERED: IBUPROFEN 600MG TABLET PO ONE (17:45)
[2018-09-12] MEDS ORDERED: BACITRACIN ZINC OINT UDPKT TOP ONE (18:00)
[2018-09-12 18:07] VITALS: BP 151/88
== END 2018-09-12 18:09 | disposition home or self-care (01) ==
LOC: ER 14:48
DX: S21.111D Laceration without foreign body of right front wall of thorax without penetration into thoracic cavity, subsequent encounter (principal); X58.XXXD Exposure to other specified factors, subsequent encounter; F32.9 Major depressive disorder, single episode, unspecified; E11.9 Type 2 diabetes mellitus without complications; I10 Essential (primary) hypertension; Z79.899 Other long term (current) drug therapy
CPT/HCPCS: 99283

== ENCOUNTER 2018-09-19 10:06 | Emergency (ER) | payer OTHER ==
[~2018-09-19] VITALS: Ht 170.2 cm; Wt 69.0 kg
[2018-09-19] MEDS ORDERED: ONDANSETRON HCL 4MG/2ML INJ IV STA (10:55)
[2018-09-19] MEDS ORDERED: SODIUM CHLORIDE 0.9% 1,000 ML IV ONE (10:55)
[2018-09-19] MEDS ORDERED: LORAZEPAM 2MG/ML CPJ IV ONE (11:00)
[2018-09-19 12:04] LABS: BASOPHILS % 0.4 % (0.0-2.0); EOSINOPHILS % 0.6 % (0.0-5.0); HEMATOCRIT. 44.9 % (42.0-52.0); HEMOGLOBIN. 15.4 g/dL (14.0-18.0); LYMPHOCYTES % 21.7 % (20.0-50.0); MEAN CORPUSCULAR HEMOGLOBIN 33.7 pg (28.0-32.0); MEAN CORPUSCULAR VOLUME 98.6 fL (80.0-94.0); MEAN PLATELET VOLUME 8.6 fl (7.4-10.4); MONOCYTES % 11.8 % (2.0-8.0); NEUTROPHILS % 65.5 % (40.0-76.0); PLATELET 243 x1000/uL (130-400); RED BLOOD CELL COUNT 4.55 mill/uL (4.7-6.1); RED CELL DISTRIBUTION WIDTH 14.6 % (11.6-14.6)
[2018-09-19 12:07] LABS: CLARITY URINE CLOUDY (CLEAR); COLOR URINE DARK YELLOW (YELLOW); KETONES URINE 1+ (NEGATIVE); LEUKOCYTE ESTERASE URINE 1+ (NEGATIVE); NITRITE URINE NEGATIVE (NEGATIVE); OCCULT BLOOD URINE NEGATIVE (NEGATIVE); PROTEIN URINE 2+ (NEGATIVE); SPECIFIC GRAVITY URINE 1.019 (1.005-1.030)
[2018-09-19 12:13] LABS: CHLORIDE 88 mEq/L (98-107); INR 1.1; PROTHROMBIN TIME 10.9 sec (9.6-11.0)
[2018-09-19 12:19] LABS: ETHANOL BLOOD < 10 mg/dL
[2018-09-19 12:30] LABS: *BARBITURATES SCREEN URINE NEGATIVE (NEGATIVE); *BENZODIAZEPINES SCREEN URINE NEGATIVE (NEGATIVE); *COCAINE SCREEN URINE NEGATIVE (NEGATIVE); METHADONE URINE SCREEN NEGATIVE (NEGATIVE)
[2018-09-19 12:31] LABS: *AMPHETAMINES SCREEN URINE NEGATIVE (NEGATIVE); CANNABINOID URINE SCREEN NEGATIVE (NEGATIVE); OPIATES URINE SCREEN NEGATIVE (NEGATIVE); PHENCYCLIDINE URINE SCREEN NEGATIVE (NEGATIVE)
[2018-09-19] MEDS ORDERED: POTASSIUM CHLORIDE 20MEQ TABLET SR PO ONE (13:00)
[2018-09-19] MEDS ORDERED: CEFTRIAXONE 1 G PREMIX 50 ML IV ONE (13:00)
[2018-09-19 15:49] VITALS: BP 138/92
== END 2018-09-19 16:35 | disposition short-term general hospital (02) ==
LOC: ER 10:06 → EDBEDREQ 13:04 → CANBEDREQ 15:07 → ER 16:35
DX: R06.6 Hiccough (principal); E87.6 Hypokalemia; N28.9 Disorder of kidney and ureter, unspecified; N39.0 Urinary tract infection, site not specified; R11.2 Nausea with vomiting, unspecified; R42 Dizziness and giddiness; I10 Essential (primary) hypertension; Z79.899 Other long term (current) drug therapy
CPT/HCPCS: 36415; 71045; 80053; 80305; 80320; 81003; 82962; 83605; 83690; 83880; 84484; 85025; 85610; 87086; 93005; 96361; 96365; 96366; 96375; 99285; J0696; J2060; J2405; J7030; G0480

== ENCOUNTER 2018-11-15 13:35 | Inpatient (IN) | payer OTHER ==
[~2018-11-15] VITALS: Ht 152.4 cm; Wt 64.0 kg
[2018-11-15 14:29] LABS: BASOPHILS % 0.4 % (0.0-2.0); EOSINOPHILS % 0.1 % (0.0-5.0); HEMATOCRIT. 49.2 % (42.0-52.0); HEMOGLOBIN. 16.4 g/dL (14.0-18.0); LYMPHOCYTES % 14.4 % (20.0-50.0); MEAN CORPUSCULAR HEMOGLOBIN 32.6 pg (28.0-32.0); MEAN CORPUSCULAR VOLUME 97.6 fL (80.0-94.0); MEAN PLATELET VOLUME 7.7 fl (7.4-10.4); MONOCYTES % 10.1 % (2.0-8.0); PLATELET 254 x1000/uL (130-400); RED BLOOD CELL COUNT 5.04 mill/uL (4.7-6.1); RED CELL DISTRIBUTION WIDTH 13.9 % (11.6-14.6)
[2018-11-15 14:37] LABS: CHLORIDE 99 mEq/L (98-107)
[2018-11-15] MEDS: POTASSIUM CHLORIDE 20MEQ TABLET SR PO STA (15:23)
[2018-11-15] MEDS ORDERED: LORAZEPAM 2MG/ML CPJ IV ONE (15:30)
[2018-11-15] MEDS ORDERED: LEVETIRACETAM 500MG PREMIX 100 ML IV ONE (15:30)
[2018-11-15] MEDS: KCL 20MEQ/100ML PREMIX 100 ML IV ONE ×2 (15:40→15:58)
[2018-11-15] MEDS ORDERED: LORAZEPAM 2MG/ML CPJ IM PRN (18:15)
[2018-11-15] MEDS: LORAZEPAM 2MG/ML CPJ IV PRN (18:21)
[2018-11-15] MEDS ORDERED: DEXT 5%/0.45% NACL 1000ML 1,000 ML IV ONE (18:45)
[2018-11-15] MEDS ORDERED: DEXTROSE 50% WATER 50ML SYRINGE IV PRN (18:45)
[2018-11-15 19:03] LABS: BG BASE EXCESS -4.5 mmol/L (-2.0-2.0); BG CARBOXYHEMOGLOBIN 2.8 % (0.5-1.5); BG DEOXYHEMOGLOBIN 6.7 % (0.0-5.0); BG FRACTION INSPIRED OXYGEN 40; BG HCO3 ACT 21.3 mmol/L (22.0-26.0); BG METHEMOGLOBIN 0.4 % (0.0-1.5); BG OXYGEN SATURATION 93.1 % (92.0-98.5); BG OXYHEMOGLOBIN 90.1 % (94.0-97.0); BG PCO2 41.7 mmHg (35.0-45.0); BG PH 7.326 (7.350-7.450); BG PO2 74.5 mmHg (75.0-100.0); BG SAMPLE SITE LEFT RADIAL; BG VENT MODE NASAL CANNULA
[2018-11-15 19:08] VITALS: BP 149/87
[2018-11-15] MEDS ORDERED: LEVETIRACETAM 500MG in SODIUM CHLORIDE 0.9% 100ML IV NR (19:15)
[2018-11-15] MEDS ORDERED: GLYB2.5T4 MT (19:17)
[2018-11-15] MEDS ORDERED: CLON-457 MT (19:17)
[2018-11-15 20:00] VITALS: BP 130/72
[2018-11-15] MEDS: INSULIN LISPRO 100 UNITS/ML SUBCUT SCH (21:00)
[2018-11-15] MEDS ORDERED: FOLIC ACID 1 MG, THIAMINE HCL 100 MG, MVI, ADULT NO.1 10 ML in DEXTROSE 5% WATER 1,000 ML IV NR ×4 (21:00)
[2018-11-15] MEDS: BLOOD SUGAR DIAGNOSTIC STRIP TEST SCH (21:28)
[2018-11-15] MEDS: CHLORDIAZEPOXIDE 25MG CAPSULE PO SCH (22:00)
[2018-11-16] VITALS (11 sets, daily range): BP systolic 123–148; BP diastolic 70–95
[2018-11-16] MEDS: LORAZEPAM 2MG/ML CPJ IV PRN (05:12)
[2018-11-16] MEDS: CHLORDIAZEPOXIDE 25MG CAPSULE PO SCH ×2 (05:21→13:40)
[2018-11-16] MEDS: BLOOD SUGAR DIAGNOSTIC STRIP TEST SCH ×4 (06:32→21:15)
[2018-11-16] MEDS: INSULIN LISPRO 100 UNITS/ML SUBCUT SCH ×4 (06:32→21:00)
[2018-11-16] MEDS: LEVETIRACETAM 500 MG in SODIUM CHLORIDE 0.9% 100 ML IV SCH ×2 (08:38→22:14)
[2018-11-16] MEDS: DEXT 5%/0.45% NACL 1000ML 1,000 ML IV SCH (14:34)
[2018-11-16] MEDS ORDERED: DEXTROSE 50% WATER 50ML SYRINGE IV PRN (16:00)
[2018-11-16] MEDS ORDERED: BLOOD SUGAR DIAGNOSTIC STRIP TEST SCH (17:10)
[2018-11-16] MEDS ORDERED: INSULIN LISPRO 100 UNITS/ML SUBCUT SCH (17:40)
[2018-11-16 18:01] LABS: BASOPHILS % 0.5 % (0.0-2.0); EOSINOPHILS % 0.2 % (0.0-5.0); HEMATOCRIT. 42.8 % (42.0-52.0); HEMOGLOBIN. 14.3 g/dL (14.0-18.0); LYMPHOCYTES % 16.8 % (20.0-50.0); MEAN CORPUSCULAR HEMOGLOBIN 32.7 pg (28.0-32.0); MEAN CORPUSCULAR VOLUME 97.6 fL (80.0-94.0); MEAN PLATELET VOLUME 7.8 fl (7.4-10.4); MONOCYTES % 7.9 % (2.0-8.0); NEUTROPHILS % 74.6 % (40.0-76.0); PLATELET 252 x1000/uL (130-400); RED BLOOD CELL COUNT 4.38 mill/uL (4.7-6.1); RED CELL DISTRIBUTION WIDTH 13.9 % (11.6-14.6)
[2018-11-16 18:09] LABS: CHLORIDE 102 mEq/L (98-107)
[2018-11-16] MEDS: FOLIC ACID 1 MG, THIAMINE HCL 100 MG, MVI, ADULT NO.1 10 ML in DEXTROSE 5% WATER 1,000 ML IV SCH ×4 (21:37)
[2018-11-16] MEDS ORDERED: POTASSIUM CHLORIDE INJ 40 MEQ in DEXT 5% WATER 250 ML IV SCH (23:00)
[2018-11-17] VITALS (13 sets, daily range): BP systolic 131–168; BP diastolic 88–107
[2018-11-17] MEDS: CHLORDIAZEPOXIDE 25MG CAPSULE PO SCH ×4 (00:09→22:59)
[2018-11-17] MEDS: LACTULOSE 20G/30ML UDC PO SCH ×4 (00:16→17:09)
[2018-11-17] MEDS: BLOOD SUGAR DIAGNOSTIC STRIP TEST SCH ×4 (06:10→22:06)
[2018-11-17 06:44] LABS: CHLORIDE 104 mEq/L (98-107)
[2018-11-17] MEDS: INSULIN LISPRO 100 UNITS/ML SUBCUT SCH ×4 (07:20→22:08)
[2018-11-17] MEDS ORDERED: POTASSIUM CHLORIDE INJ 60 MEQ in DEXT 5% WATER 500 ML IV SCH (09:00)
[2018-11-17] MEDS: LEVETIRACETAM 500 MG in SODIUM CHLORIDE 0.9% 100 ML IV SCH ×2 (09:12→21:16)
[2018-11-17] MEDS: ENOXAPARIN 40MG/0.4ML SYR SUBCUT SCH (09:13)
[2018-11-17] MEDS: DEXT 5%/0.45% NACL 1000ML 1,000 ML IV SCH ×3 (10:30→17:09)
[2018-11-17] MEDS: CLOPIDOGREL 75MG TABLET PO SCH (10:46)
[2018-11-17 16:42] LABS: CHLORIDE 105 mEq/L (98-107)
[2018-11-17] MEDS ORDERED: KCL 20MEQ/100ML PREMIX 100 ML IV SCH (20:00)
[2018-11-17] MEDS: FOLIC ACID 1 MG, THIAMINE HCL 100 MG, MVI, ADULT NO.1 10 ML in DEXTROSE 5% WATER 1,000 ML IV SCH ×4 (21:21)
[2018-11-17] MEDS ORDERED: POTASSIUM CHLORIDE INJ 60 MEQ in DEXT 5% WATER 500 ML IV NR (21:30)
[2018-11-18] VITALS (13 sets, daily range): BP systolic 130–160; BP diastolic 89–100
[2018-11-18] MEDS: LACTULOSE 20G/30ML UDC PO SCH ×5 (00:15→23:57)
[2018-11-18] MEDS: CHLORDIAZEPOXIDE 25MG CAPSULE PO SCH ×3 (06:37→22:52)
[2018-11-18] MEDS: BLOOD SUGAR DIAGNOSTIC STRIP TEST SCH ×4 (06:37→20:30)
[2018-11-18 06:43] LABS: BASOPHILS % 0.2 % (0.0-2.0); EOSINOPHILS % 0.6 % (0.0-5.0); HEMATOCRIT. 44.9 % (42.0-52.0); HEMOGLOBIN. 15.1 g/dL (14.0-18.0); LYMPHOCYTES % 16.1 % (20.0-50.0); MEAN CORPUSCULAR HEMOGLOBIN 32.5 pg (28.0-32.0); MEAN CORPUSCULAR VOLUME 96.9 fL (80.0-94.0); MEAN PLATELET VOLUME 8.1 fl (7.4-10.4); MONOCYTES % 10.4 % (2.0-8.0); NEUTROPHILS % 72.7 % (40.0-76.0); PLATELET 266 x1000/uL (130-400); RED BLOOD CELL COUNT 4.63 mill/uL (4.7-6.1); RED CELL DISTRIBUTION WIDTH 13.4 % (11.6-14.6)
[2018-11-18 06:47] LABS: CHLORIDE 104 mEq/L (98-107)
[2018-11-18] MEDS: INSULIN LISPRO 100 UNITS/ML SUBCUT SCH ×4 (07:20→20:51)
[2018-11-18] MEDS ORDERED: POTASSIUM CHLORIDE INJ 60 MEQ in DEXT 5% WATER 250 ML IV SCH (09:00)
[2018-11-18] MEDS: LEVETIRACETAM 500 MG in SODIUM CHLORIDE 0.9% 100 ML IV SCH ×2 (09:13→20:19)
[2018-11-18] MEDS: CLOPIDOGREL 75MG TABLET PO SCH (09:14)
[2018-11-18] MEDS: ENOXAPARIN 40MG/0.4ML SYR SUBCUT SCH (09:14)
[2018-11-18] MEDS ORDERED: POTASSIUM CHLORIDE INJ 60 MEQ in DEXT 5% WATER 500 ML IV SCH (10:00)
[2018-11-18] MEDS: FOLIC ACID 1 MG, THIAMINE HCL 100 MG, MVI, ADULT NO.1 10 ML in DEXTROSE 5% WATER 1,000 ML IV SCH ×4 (20:30)
[2018-11-19] VITALS (11 sets, daily range): BP systolic 128–158; BP diastolic 77–104
[2018-11-19] MEDS: CHLORDIAZEPOXIDE 25MG CAPSULE PO SCH ×3 (05:43→21:02)
[2018-11-19] MEDS: LACTULOSE 20G/30ML UDC PO SCH ×4 (06:00→23:09)
[2018-11-19 06:05] LABS: CHLORIDE 105 mEq/L (98-107)
[2018-11-19 06:16] LABS: BASOPHILS % 0.5 % (0.0-2.0); EOSINOPHILS % 2.3 % (0.0-5.0); HEMOGLOBIN. 15.2 g/dL (14.0-18.0); LYMPHOCYTES % 27.1 % (20.0-50.0); MEAN CORPUSCULAR HEMOGLOBIN 33.2 pg (28.0-32.0); MEAN PLATELET VOLUME 7.9 fl (7.4-10.4); NEUTROPHILS % 57.1 % (40.0-76.0); PLATELET 288 x1000/uL (130-400); RED BLOOD CELL COUNT 4.59 mill/uL (4.7-6.1); RED CELL DISTRIBUTION WIDTH 13.7 % (11.6-14.6)
[2018-11-19 06:17] LABS: LDL CHOLESTEROL 71 mg/dL (5-100)
[2018-11-19 06:19] LABS: HDL CHOLESTEROL 44 mg/dL (40-59)
[2018-11-19] MEDS: BLOOD SUGAR DIAGNOSTIC STRIP TEST SCH ×4 (06:22→21:42)
[2018-11-19] MEDS: INSULIN LISPRO 100 UNITS/ML SUBCUT SCH ×4 (07:20→21:00)
[2018-11-19] MEDS: CLOPIDOGREL 75MG TABLET PO SCH (09:24)
[2018-11-19] MEDS: ENOXAPARIN 40MG/0.4ML SYR SUBCUT SCH (09:24)
[2018-11-19] MEDS: LEVETIRACETAM 500 MG in SODIUM CHLORIDE 0.9% 100 ML IV SCH ×2 (09:24→21:41)
[2018-11-19] MEDS: LORAZEPAM 2MG/ML CPJ IV PRN (20:46)
[2018-11-19] MEDS: FOLIC ACID 1 MG, THIAMINE HCL 100 MG, MVI, ADULT NO.1 10 ML in DEXTROSE 5% WATER 1,000 ML IV SCH ×4 (20:46)
[2018-11-20] VITALS (11 sets, daily range): BP systolic 121–153; BP diastolic 78–111
[2018-11-20] MEDS: CHLORDIAZEPOXIDE 25MG CAPSULE PO SCH ×2 (05:12→14:16)
[2018-11-20] MEDS: LACTULOSE 20G/30ML UDC PO SCH ×4 (05:12→23:59)
[2018-11-20] MEDS: BLOOD SUGAR DIAGNOSTIC STRIP TEST SCH ×4 (05:25→21:00)
[2018-11-20] MEDS: INSULIN LISPRO 100 UNITS/ML SUBCUT SCH ×4 (05:25→21:00)
[2018-11-20 06:36] LABS: BASOPHILS % 0.4 % (0.0-2.0); EOSINOPHILS % 2.4 % (0.0-5.0); HEMATOCRIT. 45.4 % (42.0-52.0); HEMOGLOBIN. 15.4 g/dL (14.0-18.0); MEAN CORPUSCULAR HEMOGLOBIN 32.9 pg (28.0-32.0); MEAN CORPUSCULAR VOLUME 97.4 fL (80.0-94.0); MONOCYTES % 12.6 % (2.0-8.0); NEUTROPHILS % 61.6 % (40.0-76.0); PLATELET 280 x1000/uL (130-400); RED BLOOD CELL COUNT 4.66 mill/uL (4.7-6.1); RED CELL DISTRIBUTION WIDTH 13.8 % (11.6-14.6)
[2018-11-20 06:40] LABS: CHLORIDE 108 mEq/L (98-107)
[2018-11-20] MEDS: ENOXAPARIN 40MG/0.4ML SYR SUBCUT SCH (08:44)
[2018-11-20] MEDS: LEVETIRACETAM 500 MG in SODIUM CHLORIDE 0.9% 100 ML IV SCH ×2 (08:44→22:08)
[2018-11-20] MEDS: CLOPIDOGREL 75MG TABLET PO SCH (08:44)
[2018-11-20] MEDS: HYDRALAZINE 20MG/ML VIAL IV PRN (09:39)
[2018-11-20] MEDS ORDERED: POTASSIUM CHLORIDE 20MEQ/PACKET PO NR (10:15)
[2018-11-20] MEDS: DEXT 5%/0.45% NACL KCL 40MEQ/L 1,000 ML IV SCH (11:32)
[2018-11-20] MEDS: ATORVASTATIN CALCIUM 40MG TABLET PO SCH (21:26)
[2018-11-20] MEDS: LOSARTAN POTASSIUM 25 MG TABLET PO SCH (21:26)
[2018-11-20] MEDS: MULTIVITAMINS,THER W-MINERALS TABLET PO SCH (21:26)
[2018-11-20] MEDS: FOLIC ACID 1 MG, THIAMINE HCL 100 MG, MVI, ADULT NO.1 10 ML in DEXTROSE 5% WATER 1,000 ML IV SCH ×4 (22:08)
[2018-11-20] MEDS: MUPIROCIN 2% OINT 22GM NS SCH (22:47)
[2018-11-21] VITALS (12 sets, daily range): BP systolic 116–162; BP diastolic 83–107
[2018-11-21] MEDS: DEXT 5%/0.45% NACL KCL 40MEQ/L 1,000 ML IV SCH ×2 (00:45→14:29)
[2018-11-21] MEDS: HYDRALAZINE 20MG/ML VIAL IV PRN (04:48)
[2018-11-21] MEDS: BLOOD SUGAR DIAGNOSTIC STRIP TEST SCH ×4 (06:44→21:53)
[2018-11-21] MEDS: INSULIN LISPRO 100 UNITS/ML SUBCUT SCH ×4 (06:44→21:54)
[2018-11-21] MEDS: LACTULOSE 20G/30ML UDC PO SCH ×3 (06:44→17:39)
[2018-11-21 07:00] LABS: BASOPHILS % 0.5 % (0.0-2.0); EOSINOPHILS % 1.4 % (0.0-5.0); HEMATOCRIT. 48.2 % (42.0-52.0); HEMOGLOBIN. 16.2 g/dL (14.0-18.0); LYMPHOCYTES % 17.3 % (20.0-50.0); MEAN CORPUSCULAR HEMOGLOBIN 32.8 pg (28.0-32.0); MEAN CORPUSCULAR VOLUME 97.4 fL (80.0-94.0); MEAN PLATELET VOLUME 8.2 fl (7.4-10.4); NEUTROPHILS % 68.8 % (40.0-76.0); PLATELET 302 x1000/uL (130-400); RED BLOOD CELL COUNT 4.95 mill/uL (4.7-6.1)
[2018-11-21 07:31] LABS: CHLORIDE 111 mEq/L (98-107)
[2018-11-21] MEDS: LOSARTAN POTASSIUM 25 MG TABLET PO SCH ×2 (08:07→17:39)
[2018-11-21] MEDS: MULTIVITAMINS,THER W-MINERALS TABLET PO SCH (08:07)
[2018-11-21] MEDS: POTASSIUM CHLORIDE 20MEQ TABLET SR PO SCH (08:07)
[2018-11-21] MEDS: CLOPIDOGREL 75MG TABLET PO SCH (08:07)
[2018-11-21] MEDS: MUPIROCIN 2% OINT 22GM NS SCH ×2 (08:08→21:53)
[2018-11-21] MEDS: ENOXAPARIN 40MG/0.4ML SYR SUBCUT SCH (08:08)
[2018-11-21] MEDS: LEVETIRACETAM 500 MG in SODIUM CHLORIDE 0.9% 100 ML IV SCH ×2 (08:36→21:52)
[2018-11-21] MEDS: FOLIC ACID 1 MG, THIAMINE HCL 100 MG, MVI, ADULT NO.1 10 ML in DEXTROSE 5% WATER 1,000 ML IV SCH ×4 (21:52)
[2018-11-21] MEDS: ATORVASTATIN CALCIUM 40MG TABLET PO SCH (21:53)
[2018-11-22] VITALS (12 sets, daily range): BP systolic 122–150; BP diastolic 79–99
[2018-11-22] MEDS: LACTULOSE 20G/30ML UDC PO SCH ×4 (00:12→17:09)
[2018-11-22] MEDS: LORAZEPAM 1MG TABLET PO PRN (00:31)
[2018-11-22] MEDS: DEXT 5%/0.45% NACL KCL 40MEQ/L 1,000 ML IV SCH ×2 (05:19→17:17)
[2018-11-22] MEDS: BLOOD SUGAR DIAGNOSTIC STRIP TEST SCH ×4 (07:12→20:18)
[2018-11-22] MEDS: INSULIN LISPRO 100 UNITS/ML SUBCUT SCH ×4 (07:20→20:18)
[2018-11-22] MEDS: MULTIVITAMINS,THER W-MINERALS TABLET PO SCH (09:05)
[2018-11-22] MEDS: LOSARTAN POTASSIUM 25 MG TABLET PO SCH ×2 (09:05→17:09)
[2018-11-22] MEDS: POTASSIUM CHLORIDE 20MEQ TABLET SR PO SCH (09:05)
[2018-11-22] MEDS: ENOXAPARIN 40MG/0.4ML SYR SUBCUT SCH (09:05)
[2018-11-22] MEDS: CLOPIDOGREL 75MG TABLET PO SCH (09:05)
[2018-11-22] MEDS: MUPIROCIN 2% OINT 22GM NS SCH ×2 (09:06→20:18)
[2018-11-22] MEDS: LEVETIRACETAM 500 MG in SODIUM CHLORIDE 0.9% 100 ML IV SCH ×2 (09:06→21:55)
[2018-11-22] MEDS: ACETAMINOPHEN 325MG TABLET PO PRN ×2 (12:40→20:17)
[2018-11-22] MEDS ORDERED: IBUPROFEN 400MG TABLET PO NR (17:08)
[2018-11-22] MEDS ORDERED: IBUPROFEN 800MG TABLET PO NR (17:30)
[2018-11-22] MEDS: ATORVASTATIN CALCIUM 40MG TABLET PO SCH (20:17)
[2018-11-22] MEDS: FOLIC ACID 1 MG, THIAMINE HCL 100 MG, MVI, ADULT NO.1 10 ML in DEXTROSE 5% WATER 1,000 ML IV SCH ×4 (22:11)
[2018-11-23] VITALS (8 sets, daily range): BP systolic 118–139; BP diastolic 77–89
[2018-11-23] MEDS: LACTULOSE 20G/30ML UDC PO SCH ×5 (00:54→23:34)
[2018-11-23] MEDS: DEXT 5%/0.45% NACL KCL 40MEQ/L 1,000 ML IV SCH (06:27)
[2018-11-23] MEDS: BLOOD SUGAR DIAGNOSTIC STRIP TEST SCH ×4 (07:42→21:32)
[2018-11-23] MEDS: INSULIN LISPRO 100 UNITS/ML SUBCUT SCH ×4 (07:50→21:34)
[2018-11-23] MEDS: POTASSIUM CHLORIDE 20MEQ TABLET SR PO STA (09:18)
[2018-11-23] MEDS: MUPIROCIN 2% OINT 22GM NS SCH ×2 (09:19→21:31)
[2018-11-23] MEDS: LEVETIRACETAM 500 MG in SODIUM CHLORIDE 0.9% 100 ML IV SCH ×2 (09:19→23:32)
[2018-11-23] MEDS: MULTIVITAMINS,THER W-MINERALS TABLET PO SCH (09:20)
[2018-11-23] MEDS: LOSARTAN POTASSIUM 25 MG TABLET PO SCH ×2 (09:20→17:10)
[2018-11-23] MEDS: POTASSIUM CHLORIDE 20MEQ TABLET SR PO SCH (09:20)
[2018-11-23] MEDS: CLOPIDOGREL 75MG TABLET PO SCH (09:20)
[2018-11-23] MEDS: ENOXAPARIN 40MG/0.4ML SYR SUBCUT SCH (09:21)
[2018-11-23] MEDS ORDERED: METOCLOPRAMIDE HCL 10MG/2ML VIAL IV PRN (12:15)
[2018-11-23] MEDS: METOCLOPRAMIDE HCL 10MG/2ML VIAL IV SCH ×3 (13:21→23:34)
[2018-11-23] MEDS ORDERED: HYDRALAZINE 20 MG in SODIUM CHLORIDE 0.9% 49 ML IV PRN (16:00)
[2018-11-23 16:14] LABS: HEMATOCRIT. 47.5 % (42.0-52.0); HEMOGLOBIN. 15.6 g/dL (14.0-18.0); MEAN CORPUSCULAR HEMOGLOBIN 32.3 pg (28.0-32.0); MEAN CORPUSCULAR VOLUME 98.1 fL (80.0-94.0); PLATELET 313 x1000/uL (130-400); RED BLOOD CELL COUNT 4.84 mill/uL (4.7-6.1); RED CELL DISTRIBUTION WIDTH 13.9 % (11.6-14.6)
[2018-11-23 16:50] LABS: CHLORIDE 102 mEq/L (98-107)
[2018-11-23 17:03] LABS: PLATELET ESTIMATE NORMAL
[2018-11-23] MEDS: ACETAMINOPHEN 325MG TABLET PO PRN (21:30)
[2018-11-23] MEDS: ATORVASTATIN CALCIUM 40MG TABLET PO SCH (21:31)
[2018-11-23] MEDS: FOLIC ACID 1 MG, THIAMINE HCL 100 MG, MVI, ADULT NO.1 10 ML in DEXTROSE 5% WATER 1,000 ML IV SCH ×4 (23:33)
[2018-11-24] VITALS: BP 155/90
[2018-11-24] MEDS: LORAZEPAM 1MG TABLET PO PRN (00:39)
[2018-11-24 04:00] VITALS: BP 129/88
[2018-11-24] MEDS: METOCLOPRAMIDE HCL 10MG/2ML VIAL IV SCH ×4 (05:15→23:36)
[2018-11-24] MEDS: LACTULOSE 20G/30ML UDC PO SCH ×4 (05:15→23:36)
[2018-11-24 06:59] LABS: BASOPHILS % 0.2 % (0.0-2.0); EOSINOPHILS % 0.2 % (0.0-5.0); HEMATOCRIT. 44.9 % (42.0-52.0); HEMOGLOBIN. 14.7 g/dL (14.0-18.0); LYMPHOCYTES % 8.8 % (20.0-50.0); MEAN CORPUSCULAR HEMOGLOBIN 32.2 pg (28.0-32.0); MEAN CORPUSCULAR VOLUME 98.4 fL (80.0-94.0); MEAN PLATELET VOLUME 8.1 fl (7.4-10.4); NEUTROPHILS % 78.8 % (40.0-76.0); PLATELET 308 x1000/uL (130-400); RED BLOOD CELL COUNT 4.56 mill/uL (4.7-6.1); RED CELL DISTRIBUTION WIDTH 13.9 % (11.6-14.6)
[2018-11-24] MEDS: BLOOD SUGAR DIAGNOSTIC STRIP TEST SCH ×4 (07:20→20:59)
[2018-11-24 08:00] VITALS: BP 135/84
[2018-11-24] MEDS: DEXT 5%/0.45% NACL KCL 40MEQ/L 1,000 ML IV SCH (08:50)
[2018-11-24] MEDS: POTASSIUM CHLORIDE 20MEQ TABLET SR PO SCH (09:38)
[2018-11-24] MEDS: LOSARTAN POTASSIUM 25 MG TABLET PO SCH ×2 (09:38→17:43)
[2018-11-24] MEDS: CLOPIDOGREL 75MG TABLET PO SCH (09:38)
[2018-11-24] MEDS: MULTIVITAMINS,THER W-MINERALS TABLET PO SCH (09:38)
[2018-11-24] MEDS: ENOXAPARIN 40MG/0.4ML SYR SUBCUT SCH (09:39)
[2018-11-24] MEDS: MUPIROCIN 2% OINT 22GM NS SCH ×2 (09:40→23:35)
[2018-11-24] MEDS: INSULIN LISPRO 100 UNITS/ML SUBCUT SCH ×4 (09:41→21:22)
[2018-11-24] MEDS: LEVETIRACETAM 500 MG in SODIUM CHLORIDE 0.9% 100 ML IV SCH ×2 (09:45→21:21)
[2018-11-24 12:00] VITALS: BP 116/79
[2018-11-24 14:00] VITALS: BP 125/80
[2018-11-24] MEDS: ACETAMINOPHEN 325MG TABLET PO PRN (15:37)
[2018-11-24 20:00] VITALS: BP 122/83
[2018-11-24] MEDS: ATORVASTATIN CALCIUM 40MG TABLET PO SCH (20:59)
[2018-11-24] MEDS: AMOXICILLIN 500 MG CAPSULE PO SCH (23:36)
[2018-11-24] MEDS: FOLIC ACID 1 MG, THIAMINE HCL 100 MG, MVI, ADULT NO.1 10 ML in DEXTROSE 5% WATER 1,000 ML IV SCH ×4 (23:36)
[2018-11-25] VITALS: BP 111/68
[2018-11-25] MEDS: ACETAMINOPHEN 325MG TABLET PO PRN ×2 (01:55→20:26)
[2018-11-25 04:00] VITALS: BP 107/70
[2018-11-25] MEDS: AMOXICILLIN 500 MG CAPSULE PO SCH ×3 (06:33→20:25)
[2018-11-25] MEDS: LACTULOSE 20G/30ML UDC PO SCH ×3 (06:34→17:48)
[2018-11-25] MEDS: METOCLOPRAMIDE HCL 10MG/2ML VIAL IV SCH ×3 (06:34→17:50)
[2018-11-25] MEDS: BLOOD SUGAR DIAGNOSTIC STRIP TEST SCH ×4 (07:28→21:04)
[2018-11-25] MEDS: INSULIN LISPRO 100 UNITS/ML SUBCUT SCH ×4 (07:48→21:00)
[2018-11-25 07:52] LABS: BASOPHILS % 0.2 % (0.0-2.0); EOSINOPHILS % 0.7 % (0.0-5.0); HEMATOCRIT. 47.9 % (42.0-52.0); HEMOGLOBIN. 15.6 g/dL (14.0-18.0); LYMPHOCYTES % 13.3 % (20.0-50.0); MEAN CORPUSCULAR HEMOGLOBIN 32.4 pg (28.0-32.0); MEAN CORPUSCULAR VOLUME 99.4 fL (80.0-94.0); MEAN PLATELET VOLUME 7.9 fl (7.4-10.4); NEUTROPHILS % 74.8 % (40.0-76.0); PLATELET 308 x1000/uL (130-400); RED BLOOD CELL COUNT 4.82 mill/uL (4.7-6.1); RED CELL DISTRIBUTION WIDTH 14.1 % (11.6-14.6)
[2018-11-25 08:00] VITALS: BP 114/83
[2018-11-25 08:27] LABS: CHLORIDE 106 mEq/L (98-107)
[2018-11-25] MEDS: LOSARTAN POTASSIUM 25 MG TABLET PO SCH ×2 (08:44→17:50)
[2018-11-25] MEDS: CLOPIDOGREL 75MG TABLET PO SCH (08:44)
[2018-11-25] MEDS: MULTIVITAMINS,THER W-MINERALS TABLET PO SCH (08:44)
[2018-11-25] MEDS: POTASSIUM CHLORIDE 20MEQ TABLET SR PO SCH (08:44)
[2018-11-25] MEDS: ENOXAPARIN 40MG/0.4ML SYR SUBCUT SCH (08:44)
[2018-11-25] MEDS: MUPIROCIN 2% OINT 22GM NS SCH (08:45)
[2018-11-25] MEDS: LEVETIRACETAM 500 MG in SODIUM CHLORIDE 0.9% 100 ML IV SCH ×2 (08:45→22:38)
[2018-11-25 12:00] VITALS: BP 118/80
[2018-11-25] MEDS: DEXT 5%/0.45% NACL KCL 40MEQ/L 1,000 ML IV SCH (15:20)
[2018-11-25 16:00] VITALS: BP 153/64
[2018-11-25 20:00] VITALS: BP 124/75
[2018-11-25] MEDS: FOLIC ACID 1 MG, THIAMINE HCL 100 MG, MVI, ADULT NO.1 10 ML in DEXTROSE 5% WATER 1,000 ML IV SCH ×4 (20:25)
[2018-11-25] MEDS: ATORVASTATIN CALCIUM 40MG TABLET PO SCH (20:26)
[2018-11-26] VITALS: BP 138/79
[2018-11-26] MEDS: METOCLOPRAMIDE HCL 10MG/2ML VIAL IV SCH ×4 (00:55→17:50)
[2018-11-26] MEDS: DEXT 5%/0.45% NACL KCL 40MEQ/L 1,000 ML IV SCH ×2 (00:55→13:10)
[2018-11-26] MEDS: LACTULOSE 20G/30ML UDC PO SCH ×4 (00:56→17:50)
[2018-11-26 04:00] VITALS: BP 128/87
[2018-11-26 05:03] LABS: BASOPHILS % 0.4 % (0.0-2.0); EOSINOPHILS % 1.4 % (0.0-5.0); HEMATOCRIT. 47.7 % (42.0-52.0); HEMOGLOBIN. 15.6 g/dL (14.0-18.0); LYMPHOCYTES % 11.2 % (20.0-50.0); MEAN CORPUSCULAR HEMOGLOBIN 32.3 pg (28.0-32.0); MEAN CORPUSCULAR VOLUME 98.8 fL (80.0-94.0); MEAN PLATELET VOLUME 7.9 fl (7.4-10.4); MONOCYTES % 13.3 % (2.0-8.0); NEUTROPHILS % 73.7 % (40.0-76.0); PLATELET 311 x1000/uL (130-400); RED BLOOD CELL COUNT 4.83 mill/uL (4.7-6.1); RED CELL DISTRIBUTION WIDTH 14.1 % (11.6-14.6)
[2018-11-26] MEDS: AMOXICILLIN 500 MG CAPSULE PO SCH ×3 (05:40→22:06)
[2018-11-26] MEDS: BLOOD SUGAR DIAGNOSTIC STRIP TEST SCH ×4 (06:54→21:00)
[2018-11-26 07:24] LABS: CHLORIDE 105 mEq/L (98-107)
[2018-11-26] MEDS: LEVETIRACETAM 500 MG in SODIUM CHLORIDE 0.9% 100 ML IV SCH ×2 (09:01→22:36)
[2018-11-26] MEDS: POTASSIUM CHLORIDE 20MEQ TABLET SR PO SCH (09:02)
[2018-11-26] MEDS: MULTIVITAMINS,THER W-MINERALS TABLET PO SCH (09:02)
[2018-11-26] MEDS: CLOPIDOGREL 75MG TABLET PO SCH (09:02)
[2018-11-26] MEDS: LOSARTAN POTASSIUM 25 MG TABLET PO SCH ×2 (09:02→17:52)
[2018-11-26] MEDS: ENOXAPARIN 40MG/0.4ML SYR SUBCUT SCH (09:02)
[2018-11-26] MEDS: INSULIN LISPRO 100 UNITS/ML SUBCUT SCH ×4 (09:06→22:35)
[2018-11-26] MEDS ORDERED: SODIUM CHLORIDE 0.9% 1,000 ML IV ONE (16:15)
[2018-11-26 20:00] VITALS: BP 138/92
[2018-11-26 22:00] VITALS: BP 132/94
[2018-11-26] MEDS: ATORVASTATIN CALCIUM 40MG TABLET PO SCH (22:06)
[2018-11-27] VITALS (9 sets, daily range): BP systolic 88–129; BP diastolic 53–86
[2018-11-27] MEDS: METOCLOPRAMIDE HCL 10MG/2ML VIAL IV SCH ×4 (00:29→16:58)
[2018-11-27] MEDS: FOLIC ACID 1 MG, THIAMINE HCL 100 MG, MVI, ADULT NO.1 10 ML in DEXTROSE 5% WATER 1,000 ML IV SCH ×4 (00:29)
[2018-11-27] MEDS: LACTULOSE 20G/30ML UDC PO SCH ×4 (00:29→16:58)
[2018-11-27] MEDS: DEXT 5%/0.45% NACL KCL 40MEQ/L 1,000 ML IV SCH ×2 (03:30→16:57)
[2018-11-27] MEDS: AMOXICILLIN 500 MG CAPSULE PO SCH ×3 (05:46→21:51)
[2018-11-27] MEDS: BLOOD SUGAR DIAGNOSTIC STRIP TEST SCH ×4 (07:59→21:51)
[2018-11-27] MEDS: LOSARTAN POTASSIUM 25 MG TABLET PO SCH ×2 (09:00→21:00)
[2018-11-27] MEDS: MULTIVITAMINS,THER W-MINERALS TABLET PO SCH (09:00)
[2018-11-27] MEDS: POTASSIUM CHLORIDE 20MEQ TABLET SR PO SCH (09:00)
[2018-11-27] MEDS: ENOXAPARIN 40MG/0.4ML SYR SUBCUT SCH (09:00)
[2018-11-27] MEDS: INSULIN LISPRO 100 UNITS/ML SUBCUT SCH ×4 (09:12→22:05)
[2018-11-27] MEDS: CLOPIDOGREL 75MG TABLET PO SCH (09:22)
[2018-11-27] MEDS: LEVETIRACETAM 500 MG in SODIUM CHLORIDE 0.9% 100 ML IV SCH ×2 (10:50→21:50)
[2018-11-27 11:27] LABS: BASOPHILS % 0.7 % (0.0-2.0); EOSINOPHILS % 0.6 % (0.0-5.0); HEMATOCRIT. 46.2 % (42.0-52.0); HEMOGLOBIN. 15.4 g/dL (14.0-18.0); MEAN CORPUSCULAR HEMOGLOBIN 32.2 pg (28.0-32.0); MEAN CORPUSCULAR VOLUME 96.9 fL (80.0-94.0); MEAN PLATELET VOLUME 7.5 fl (7.4-10.4); MONOCYTES % 12.5 % (2.0-8.0); NEUTROPHILS % 67.2 % (40.0-76.0); PLATELET 360 x1000/uL (130-400); RED BLOOD CELL COUNT 4.77 mill/uL (4.7-6.1); RED CELL DISTRIBUTION WIDTH 13.5 % (11.6-14.6)
[2018-11-27 11:41] LABS: CHLORIDE 102 mEq/L (98-107)
[2018-11-27] MEDS: ATORVASTATIN CALCIUM 40MG TABLET PO SCH (21:50)
[2018-11-28] VITALS (10 sets, daily range): BP systolic 99–130; BP diastolic 68–88
[2018-11-28] MEDS: FOLIC ACID 1 MG, THIAMINE HCL 100 MG, MVI, ADULT NO.1 10 ML in DEXTROSE 5% WATER 1,000 ML IV SCH ×4
[2018-11-28] MEDS: METOCLOPRAMIDE HCL 10MG/2ML VIAL IV SCH ×4 (00:40→17:05)
[2018-11-28] MEDS: LACTULOSE 20G/30ML UDC PO SCH ×4 (05:39→17:05)
[2018-11-28] MEDS: AMOXICILLIN 500 MG CAPSULE PO SCH ×3 (05:58→22:00)
[2018-11-28] MEDS: BLOOD SUGAR DIAGNOSTIC STRIP TEST SCH ×4 (08:08→22:00)
[2018-11-28] MEDS: INSULIN LISPRO 100 UNITS/ML SUBCUT SCH ×4 (08:52→22:00)
[2018-11-28] MEDS: THIAMINE HCL 100MG TABLET PO SCH (08:53)
[2018-11-28] MEDS: FOLIC ACID 1MG TABLET PO SCH (08:53)
[2018-11-28] MEDS: CLOPIDOGREL 75MG TABLET PO SCH (08:53)
[2018-11-28] MEDS: POTASSIUM CHLORIDE 20MEQ TABLET SR PO SCH (08:53)
[2018-11-28] MEDS: MULTIVITAMINS,THER W-MINERALS TABLET PO SCH (08:53)
[2018-11-28] MEDS: ENOXAPARIN 40MG/0.4ML SYR SUBCUT SCH (08:53)
[2018-11-28] MEDS: LEVETIRACETAM 500MG TABLET PO SCH ×2 (08:54→22:00)
[2018-11-28] MEDS: LOSARTAN POTASSIUM 25 MG TABLET PO SCH ×2 (08:55→22:00)
[2018-11-28 09:15] LABS: ABSOLUTE EOSINOPHILS 0.1 x10E3/uL (0.0-0.4); ABSOLUTE LYMPHOCYTES 1.5 x10E3/uL (0.7-3.1); ABSOLUTE MONOCYTES 0.9 x10E3/uL (0.1-0.9); ABSOLUTE NEUTROPHILS 5.3 x10E3/uL (1.4-7.0); BASOPHILS 0 % (Not Estab.); HEMATOCRIT 50.2 % (37.5-51.0); HEMOGLOBIN 16.5 g/dL (13.0-17.7); IMMATURE GRANULOCYTES 0 % (Not Estab.); LYMPHOCYTES 19 % (Not Estab.); MEAN CORPUSCULAR HEMOGLOBIN 32.9 pg (26.6-33.0); MEAN CORPUSCULAR HGB CONC. 32.9 g/dL (31.5-35.7); MEAN CORPUSCULAR VOLUME 100 fL (79-97); MONOCYTES 11 % (Not Estab.); NEUTROPHILS 68 % (Not Estab.); PLATELETS 355 x10E3/uL (150-450); RBC 5.02 x10E6/uL (4.14-5.80); RED CELL DISTRIBUTION WIDTH 13.4 % (12.3-15.4); WBC 7.8 x10E3/uL (3.4-10.8)
[2018-11-28] MEDS: ATORVASTATIN CALCIUM 40MG TABLET PO SCH (22:00)
[2018-11-29] VITALS (12 sets, daily range): BP systolic 80–122; BP diastolic 36–91
[2018-11-29] MEDS: LACTULOSE 20G/30ML UDC PO SCH ×5 (01:09→23:18)
[2018-11-29] MEDS: METOCLOPRAMIDE HCL 10MG/2ML VIAL IV SCH ×5 (01:09→23:18)
[2018-11-29] MEDS: AMOXICILLIN 500 MG CAPSULE PO SCH ×3 (06:19→21:50)
[2018-11-29] MEDS: BLOOD SUGAR DIAGNOSTIC STRIP TEST SCH ×4 (06:53→21:53)
[2018-11-29] MEDS: INSULIN LISPRO 100 UNITS/ML SUBCUT SCH ×4 (07:43→22:00)
[2018-11-29] MEDS: MULTIVITAMINS,THER W-MINERALS TABLET PO SCH (08:27)
[2018-11-29] MEDS: LEVETIRACETAM 500MG TABLET PO SCH ×2 (08:27→21:50)
[2018-11-29] MEDS: LOSARTAN POTASSIUM 25 MG TABLET PO SCH ×2 (08:27→21:50)
[2018-11-29] MEDS: FOLIC ACID 1MG TABLET PO SCH (08:27)
[2018-11-29] MEDS: THIAMINE HCL 100MG TABLET PO SCH (08:27)
[2018-11-29] MEDS: POTASSIUM CHLORIDE 20MEQ TABLET SR PO SCH (08:27)
[2018-11-29] MEDS: CLOPIDOGREL 75MG TABLET PO SCH (08:27)
[2018-11-29] MEDS: ENOXAPARIN 40MG/0.4ML SYR SUBCUT SCH (08:28)
[2018-11-29] MEDS ORDERED: LORAZEPAM 2MG/ML CPJ IV NR ×2 (09:30→23:15)
[2018-11-29 10:06] LABS: % CD 3 POS. LYMPHOCYTES 79.7 % (57.5-86.2); % CD 4 POS. LYMPHOCYTES 55.6 % (30.8-58.5); % CD 8 POS. LYMPH 26.4 % (12.0-35.5); ABSOLUTE CD 3 1196 /uL (622-2402); ABSOLUTE CD 4 HELPER 834 /uL (359-1519); ABSOLUTE CD 8 SUPPRESSOR 396 /uL (109-897); CD4/CD8 RATIO 2.11 (0.92-3.72)
[2018-11-29] MEDS: ATORVASTATIN CALCIUM 40MG TABLET PO SCH (21:50)
[2018-11-30] VITALS (13 sets, daily range): BP systolic 83–128; BP diastolic 38–92
[2018-11-30] MEDS: LACTULOSE 20G/30ML UDC PO SCH ×3 (06:51→18:00)
[2018-11-30] MEDS: METOCLOPRAMIDE HCL 10MG/2ML VIAL IV SCH ×4 (06:52→18:00)
[2018-11-30] MEDS: BLOOD SUGAR DIAGNOSTIC STRIP TEST SCH ×3 (06:55→17:30)
[2018-11-30] MEDS: AMOXICILLIN 500 MG CAPSULE PO SCH ×2 (06:55→15:17)
[2018-11-30] MEDS: INSULIN LISPRO 100 UNITS/ML SUBCUT SCH ×3 (08:00→18:00)
[2018-11-30] MEDS: THIAMINE HCL 100MG TABLET PO SCH (08:48)
[2018-11-30] MEDS: POTASSIUM CHLORIDE 20MEQ TABLET SR PO SCH (08:48)
[2018-11-30] MEDS: LOSARTAN POTASSIUM 25 MG TABLET PO SCH (08:48)
[2018-11-30] MEDS: MULTIVITAMINS,THER W-MINERALS TABLET PO SCH (08:48)
[2018-11-30] MEDS: FOLIC ACID 1MG TABLET PO SCH (08:48)
[2018-11-30] MEDS: CLOPIDOGREL 75MG TABLET PO SCH (08:48)
[2018-11-30] MEDS: LEVETIRACETAM 500MG TABLET PO SCH (08:48)
[2018-11-30] MEDS: ENOXAPARIN 40MG/0.4ML SYR SUBCUT SCH (08:49)
[2018-12-02 15:14] LABS: 7-AMINOCLONAZEPAM CONFIRM Negative (.); ALPRAZOLAM CONFIRM Negative (.); BARBITURATE SCREEN Negative ug/mL (Cutoff:0.1); BENZODIAZEPINE SCREEN ++POSITIVE++ ng/mL (Cutoff:20); CHLORDIAZEPOXIDE CONFIRM 411 ng/mL (.); CLONAZEPAM CONFIRM Negative (.); DESMETHYLCHLORDIAZEPOXIDE 816 ng/mL (.); DIAZEPAM CONFIRM Negative (.); FLURAZEPAM CONFIRM Negative (.); LORAZEPAM CONFIRM Negative (.); MIDAZOLAM CONFIRM Negative (.); OPIATES SCREEN Negative ng/mL (Cutoff:5); OXAZEPAM CONFIRM Negative (.); PHENCYCLIDINE SCREEN Negative ng/mL (Cutoff:8); TEMAZEPAM CONFIRM Negative (.); TRIAZOLAM CONFIRM Negative (.)
== END 2018-11-30 18:40 | disposition home health service (06) | DRG 720 ==
LOC: ER 13:35 → 8WST 15:28 → ENRESERV 16:02 → 3WST 11-16 18:38 → 6EST 11-23 02:45 → 5EST 11-26 18:25
PROVIDERS: ADMIT Internal Medicine; ATTEND Internal Medicine
PROC: 4A00X4Z Measurement of Central Nervous Electrical Activity, External Approach (ICD-10-PCS; principal; 2018-11-18)
DX: A41.51 Sepsis due to Escherichia coli [E. coli] (principal); I63.322 Cerebral infarction due to thrombosis of left anterior cerebral artery; J96.01 Acute respiratory failure with hypoxia; J69.0 Pneumonitis due to inhalation of food and vomit; G93.49 Other encephalopathy; E46 Unspecified protein-calorie malnutrition; E72.20 Disorder of urea cycle metabolism, unspecified; E87.6 Hypokalemia; Z91.19 Patient's noncompliance with other medical treatment and regimen; G40.909 Epilepsy, unspecified, not intractable, without status epilepticus; F10.20 Alcohol dependence, uncomplicated; N18.9 Chronic kidney disease, unspecified; E11.22 Type 2 diabetes mellitus with diabetic chronic kidney disease; R13.10 Dysphagia, unspecified; Z82.49 Family history of ischemic heart disease and other diseases of the circulatory system; Z86.73 Personal history of transient ischemic attack (TIA), and cerebral infarction without residual deficits; I12.9 Hypertensive chronic kidney disease with stage 1 through stage 4 chronic kidney disease, or unspecified chronic kidney disease; Z72.89 Other problems related to lifestyle; R26.9 Unspecified abnormalities of gait and mobility; N39.0 Urinary tract infection, site not specified; B96.20 Unspecified Escherichia coli [E. coli] as the cause of diseases classified elsewhere; R47.1 Dysarthria and anarthria; Z68.27 Body mass index [BMI] 27.0-27.9, adult
CPT/HCPCS: 36415; 36600; 70551; 71045; 74018; 80048; 80061; 80165; 80307; 80320; 82140; 82375; 82805; 82962; 83735; 83880; 84145; 84484; 86359; 86360; 87077; 87186; 87389; 92523; 92610; 93005; 93306; 93880; 93970; 97116; 97162; 97166; 99291; C1893; J0360; J1650; J1815; J1953; J2060; J2765; J3411; J3480; J3490; J7040; J7050; J7060; J7070; A4315; G0480

== ENCOUNTER 2024-01-15 08:53 | Emergency (ER) | payer BC, MEDICAID ==
[~2024-01-15] VITALS: Ht 170.2 cm; Wt 76.0 kg
[~2024-01-15 08:53] MED LIST changes: +CLON-493 MT; +GLYB2.5T4 MT
[2024-01-15 08:55] VITALS: BP 148/100; O2SAT 95
[2024-01-15] MEDS ORDERED: DICYCLOMINE 10 MG/5 ML ORAL SYR PO STA (09:13)
[2024-01-15] MEDS: MAGNESIUM/ALUMINUM HYDROXIDE/SIMETHICONE 30ML UDC PO STA (09:26)
[2024-01-15] MEDS: DICYCLOMINE HCL 10MG CAPSULE PO NR (09:27)
[2024-01-15] MEDS: FAMOTIDINE 20MG TABLET PO ONE (09:27)
[2024-01-15] MEDS: ONDANSETRON 4MG ODT PO STA (09:27)
[2024-01-15] MEDS: HALOPERIDOL LACTATE 5MG/ML VIAL IM ONE (09:28)
[2024-01-15 09:47] LABS: BASOPHILS % 0.4 % (0.0-2.0); EOSINOPHILS % 0.7 % (0.0-5.0); HEMATOCRIT. 46.7 % (42.0-52.0); HEMOGLOBIN. 15.7 g/dL (14.0-18.0); LYMPHOCYTES % 38.1 % (20.0-50.0); MEAN CORPUSCULAR HEMOGLOBIN 30.6 pg (28.0-32.0); MEAN CORPUSCULAR HGB CONC 33.7 g/dL (31.0-37.0); MEAN CORPUSCULAR VOLUME 90.9 fL (80.0-94.0); MEAN PLATELET VOLUME 8.1 fl (7.4-10.4); MONOCYTES % 10.7 % (2.0-8.0); NEUTROPHILS % 50.1 % (40.0-76.0); PLATELET 231 x1000/uL (130-400); RED BLOOD CELL COUNT 5.13 mill/uL (4.7-6.1); RED CELL DISTRIBUTION WIDTH 14.1 % (11.6-14.6); WHITE BLOOD COUNT 8.1 x1000/uL (4.5-11.0)
[2024-01-15 09:52] LABS: PROTHROMBIN TIME 11.4 sec (9.6-11.0)
[2024-01-15 10:03] LABS: CHLORIDE 104 mEq/L (98-107); POTASSIUM 3.8 mEq/L (3.5-5.1); SODIUM 139 mEq/L (136-145)
[2024-01-15 10:04] LABS: CALCIUM 9.7 mg/dL (8.7-10.4); CARBON DIOXIDE 27 mEq/L (21-32)
[2024-01-15 10:09] LABS: CREATININE 1.1 mg/dL (0.6-1.3); GLUCOSE 156 mg/dL (70-105); UREA NITROGEN BLOOD 9 mg/dL (9-23)
[2024-01-15 10:10] LABS: TROPONIN I HIGH SENSITIVITY 13 ng/L (3.0-53)
[2024-01-15 10:11] LABS: ALANINE AMINOTRANSFERASE 20 IU/L (10-49); ALBUMIN 4.5 g/dL (3.2-4.8); ASPARTATE AMINOTRANSFERASE 22 IU/L (<34); BILIRUBIN DIRECT 0.3 mg/dL (<=3.0); BILIRUBIN TOTAL 0.9 mg/dL (0.1-1.0); PROTEIN TOTAL 7.3 g/dL (6.0-8.3)
[2024-01-15 10:38] LABS: ETHANOL BLOOD < 10 mg/dL (<10)
[2024-01-15] MEDS ORDERED: METO-293 MT (11:15)
[2024-01-15] MEDS ORDERED: FAMO-135 MT (11:15)
[2024-01-15 11:16] LABS: CLARITY URINE CLEAR (CLEAR); COLOR URINE YELLOW (YELLOW); GLUCOSE URINE NEGATIVE (NEGATIVE); KETONES URINE NEGATIVE (NEGATIVE); LEUKOCYTE ESTERASE URINE TRACE (NEGATIVE); NITRITE URINE NEGATIVE (NEGATIVE); OCCULT BLOOD URINE NEGATIVE (NEGATIVE); PROTEIN URINE NEGATIVE (NEGATIVE); SPECIFIC GRAVITY URINE 1.012 (1.005-1.030); UROBILINOGEN URINE 0.2 E.U./dL (0.2-1.0)
[2024-01-15 11:27] VITALS: PULSE 86; RESP 18; TEMP 36.83628; O2SAT 97
[2024-01-15 11:39] LABS: *AMPHETAMINES SCREEN URINE NEGATIVE (NEGATIVE); *BARBITURATES SCREEN URINE NEGATIVE (NEGATIVE); *BENZODIAZEPINES SCREEN URINE NEGATIVE (NEGATIVE); *COCAINE SCREEN URINE NEGATIVE (NEGATIVE); CANNABINOID URINE SCREEN NEGATIVE (NEGATIVE); METHADONE URINE SCREEN NEGATIVE (NEGATIVE); OPIATES URINE SCREEN NEGATIVE (NEGATIVE); PHENCYCLIDINE URINE SCREEN NEGATIVE (NEGATIVE)
[2024-01-15 11:40] LABS: ECSTASY MDMA SCREEN URINE NEGATIVE (NEGATIVE)
[2024-01-15 12:50] LABS: SQUAMOUS EPITHELIAL CELL URINE RARE /lpf (RARE/1+)
[2024-01-15 12:51] LABS: RBC URINE 0-2 /hpf (0-2)
[2024-01-15 12:52] LABS: BACTERIA URINE NONE SEEN
== END 2024-01-15 11:28 | disposition home or self-care (01) ==
LOC: ER 08:53
DX: K44.9 Diaphragmatic hernia without obstruction or gangrene (principal); N40.1 Benign prostatic hyperplasia with lower urinary tract symptoms; R10.9 Unspecified abdominal pain; R06.6 Hiccough; I10 Essential (primary) hypertension; E11.9 Type 2 diabetes mellitus without complications
CPT/HCPCS: 80076; 80305; 80048; 81003; 80320; 83690; 85025; 85610; 84484; 36415; 71045; 74176; 93005; 96372; 99285; Q0162; J1630; G0480